=== PATIENT | male | born 1945 | race Caucasian/White ===

== ENCOUNTER → 2016-12-22 | Outpatient (CLI) | payer MEDICARE | END | disposition home or self-care (01) | LOC: LABWHC1 07:11 | PROVIDERS: ATTEND Internal Medicine Cardiovascular Disease | DX: I25.10 Atherosclerotic heart disease of native coronary artery without angina pectoris (principal) | CPT/HCPCS: 36415; 83704 ==

== ENCOUNTER 2019-12-04 16:26 | Emergency (ER) | payer MEDICARE ==
[2019-12-04 16:30] VITALS: RESP 18
--- NOTE | 2019-12-04 17:11 | XR ---
EXAMINATION TYPE: XR foot complete LT DATE OF EXAM: 12/04/2019 COMPARISON: NONE HISTORY: Big toe swelling TECHNIQUE: 3 views FINDINGS: There is a plantar calcaneal spur. Metatarsals are intact. There is some spurring at the ta rsometatarsal joints. The big toe appears intact. There are no erosions. IMPRESSION: Arthritic changes. No fracture seen.
[2019-12-04] MEDS ORDERED: CEPHALEXIN 500MG STARTER PACK 4 CAP BTL PO STA (17:45)
[2019-12-04] MEDS ORDERED: SULFAMETH-TMP DS STARTER PACK 2 TAB BTL PO STA (17:45)
--- NOTE | 2019-12-04 18:01 | ED ---
Lower Extremity Injury HPI - General Chief Complaint: Extremity Injury, Lower Stated Complaint: Toe swelling Source: patient Mode of arrival: ambulatory Limitations: no limitations - History of Present Illness Initial Comments: 74-year-old male presenting for left great toe pain patient states that he stubbed his toe proximally 5 days ago. He states he also attempted to cut his toenails. Patient states he now has redness adjacent to the toenail bed. Patient states it is tender to ambulation but he has been working and not having a difficult to ambulate. Patient is unsure if he has a fracture or infection secondary to cutting his toenails. Patient states he is prediabetic he states he has implementing lifestyle changes denies any diabetic medication denies being insulin-dependent. Patient denies any history of MRSA. Patient denies any fever or flulike symptoms. Patient has a swelling of the foot ankle or calf. Remaining review of systems negative upon arrival patient appears well no signs of acute distress - Related Data Home Medications Medication Instructions Recorded Confirmed Aspirin 81 mg PO DAILY 12/01/17 12/01/17 Atorvastatin [Lipitor] 80 mg PO DAILY 12/01/17 12/01/17 Enalapril [Vasotec] 10 mg PO DAILY 12/01/17 12/01/17 Metoprolol Succinate (ER) [Toprol 25 mg PO DAILY 12/01/17 12/01/17 XL] metFORMIN HCL [Glucophage Xr] 500 mg PO DAILY 12/01/17 12/01/17 Previous Rx's Medication Instructions Recorded Cephalexin [Keflex] 500 mg PO Q6HR 7 Days #28 cap 12/04/19 Allergies Allergy/AdvReac Type Severity Reaction Status Date / Time No Known Allergies Allergy Verified 12/04/19 16:30 Review of Systems ROS Statement: Those systems with pertinent positive or pertinent negative responses have been documented in the HPI. ROS Other: All systems not noted in ROS Statement are negative. Past Medical History Past Medical History: Hyperlipidemia, Hypertension Additional Past Medical History / Comment(s): AORTIC ANEURYSM, History of Any Multi-Drug Resistant Organisms: None Reported Past Surgical History: Heart Catheterization With Stent, Orthopedic Surgery Additional Past Surgical History / Comment(s): AORTIC ANEURYSM, RIPPED L ARM MUSCLE, R KNEE SURGERY, HEART STENT 2000 Past Anesthesia/Blood Transfusion Reactions: No Reported Reaction Date of Last Stent Placement:: 2000 Past Psychological History: No Psychological Hx Reported Smoking Status: Current some day smoker Past Alcohol Use History: None Reported Past Drug Use History: None Reported - Past Family History Mother Family Medical History: Cancer, Diabetes Mellitus Additional Family Medical History / Comment(s): HYSTERECTOMY Father Family Medical History: Diabetes Mellitus General Exam - General Exam Comments Initial Comments: General: The patient is awake and alert, in no distress, and does not appear acutely ill. Eye: +3 mm pupils are equal, round and reactive to light, extra-ocular movemen ts are intact. No nystagmus. There is normal conjunctiva bilaterally. No signs of icterus. Ears, nose, mouth and throat: There are moist mucous membranes and no oral les ions. Cardiovascular: There is a regular rate and rhythm. No murmur, rub or gallop is appreciated. Respiratory: Lungs are clear to auscultation, respirations are non-labored, breath sounds are equal. No wheezes, stridor, rales, or rhonchi. Musculoskeletal: Normal ROM, no tenderness. Strength 5/5. Sensation intact. Pulses equal bilaterally 2+. Neurological: A&O x 3. CN II-XII intact grossly, There are no obvious motor or sensory deficits. Coordination appears grossly intact. Speech is normal. Skin: Skin is warm and dry and no rashes or lesions are noted. Area of redness spreading from nailbed, with a fluctulant area adjacent to the left great toe medial aspect. No redness of foot or swelling. No gross deformity. Psychiatric: Cooperative, appropriate mood & affect, normal judgment. Limitations: no limitations Course Vital Signs 12/04/19 12/04/19 16:28 18:18 Temperature 98.1 F 98.6 F Pulse Rate 90 89 Respiratory 18 18 Rate Blood Pressure 170/74 176/80 O2 Sat by Pulse 96 95 Oximetry Medical Decision Making - Medical Decision Making 74-year-old male presenting for left great toe pain evidence of paronychia on examination. Attempted drainage no purulent drainage, only blood. No fevers. No constitutional symptoms. (-) Plain films for acute process. Patient be treated with antibiotics and given follow-up with podiatry as well as primary care provider. Discussed at length return parameters importance of follow-up. Discussed case attending provider who is agreeable care plan in discharge at this time Disposition Clinical Impression: Great toe pain, Paronychia of great toe, left Disposition: HOME SELF-CARE Condition: Good Instructions (If sedation given, give patient instructions): Paronychia (ED) Additional Instructions: Please use medication as discussed. Please follow-up with family doctor in the next 2 days. Please return to emergency room if the symptoms increase or worsen or for any other concerns. Prescriptions: Cephalexin [Keflex] 500 mg PO Q6HR 7 Days #28 cap Is patient prescribed a controlled substance at d/c from ED?: No Referrals: Zane Means MD [Primary Care Provider] - 1-2 days Niranjan Laureano DPM [STAFF PHYSICIAN] - 1-2 days Time of Disposition: 18:00
[2019-12-04 18:20] VITALS: BP 176/80; PULSE 89; TEMP 98.6
--- NOTE | 2019-12-06 07:39 | CDI ---
Documentation Clarification OP Dear Minerva Rodrigues, PAC Please provide complete incision & drainage note of paronychia of toe. Thank you, Bindu Matos Registered Respiratory Technician If you have any questions, please contact [employer] at [phone] [facility]
== END 2019-12-04 18:20 | disposition home or self-care (01) ==
LOC: EC 16:26
DX: L03.032 Cellulitis of left toe (principal); E78.5 Hyperlipidemia, unspecified; I10 Essential (primary) hypertension; F17.200 Nicotine dependence, unspecified, uncomplicated; Z95.5 Presence of coronary angioplasty implant and graft; Z79.82 Long term (current) use of aspirin; Z79.84 Long term (current) use of oral hypoglycemic drugs; Z79.899 Other long term (current) drug therapy
CPT/HCPCS: 10060; 99283

== ENCOUNTER 2020-04-27 13:11 | Inpatient (IN) | payer MEDICARE ==
[2020-04-27] MEDS ORDERED: SODIUM CHLORIDE 0.9% 500 ML 500 ML IV STA ×2 (13:24→15:51)
--- NOTE | 2020-04-27 13:29 | ED ---
Weakness HPI - General Chief complaint: Weakness Stated complaint: Weakness, Decrease mobility Time Seen by Provider: 04/27/20 13:15 Source: patient, EMS Mode of arrival: EMS Limitations: physical limitation - History of Present Illness Initial comments: Patient is a 74-year-old male, with history of hypertension, presenting to the emergency department via EMS with complaints of increasing weakness over the past few days. Patient states he rolled out of bed this morning onto the floor and was unable to get himself up. Patient states he laid there for partially 4- 5 hours before they called EMS. He is not normally use anything for walking assistance. He states he has been trying to eat and drink as normal, it has been decreased. EMS states that the house is very full of stuff, hoarding issue. EMS states there is no way to even get a wheelchair through their house. Patient denies any pain anywhere except for some chronic back pain. He denies any recent fever, chills, nausea, vomiting, diarrhea. He denies dysuria, abdominal pain. He denies chest pain or shortness of breath. He has no further complaints at this time. Upon arrival to the ER, patient was hypertensive at 173/89, rest of vitals normal. Patient states he is supposed to be taking hypertension medications but has not in 1-2 years. - Related Data Home Medications Medication Instructions Recorded Confirmed Aspirin 81 mg PO DAILY 12/01/17 04/27/20 Allergies Allergy/AdvReac Type Severity Reaction Status Date / Time No Known Allergies Allergy Verified 04/27/20 13:23 Review of Systems ROS Statement: Those systems with pertinent positive or pertinent negative responses have been documented in the HPI. ROS Other: All systems not noted in ROS Statement are negative. Past Medical History Past Medical History: Hyperlipidemia, Hypertension Additional Past Medical History / Comment(s): AORTIC ANEURYSM, History of Any Multi-Drug Resistant Organisms: None Reported Past Surgical History: Heart Catheterization With Stent, Orthopedic Surgery Additional Past Surgical History / Comment(s): AORTIC ANEURYSM, RIPPED L ARM MUSCLE, R KNEE SURGERY, HEART STENT 2000 Past Anesthesia/Blood Transfusion Reactions: No Reported Reaction Date of Last Stent Placement:: 2000 Past Psychological History: No Psychological Hx Reported Smoking Status: Current some day smoker Past Alcohol Use History: None Reported Past Drug Use History: None Reported - Past Family History Mother Family Medical History: Cancer, Diabetes Mellitus Additional Family Medical History / Comment(s): HYSTERECTOMY Father Family Medical History: Diabetes Mellitus General Exam - General Exam Comments Initial Comments: GENERAL: Patient looks disheveled, slightly fatigued and in no acute distress. HEAD: Atraumatic, normocephalic. EYES: Pupils equal round and reactive to light, extraocular movements intact, sclera anicteric, conjunctiva are normal. ENT: TMs normal, nares patent, oropharynx clear without exudates. Dry mucous membranes. NECK: Normal range of motion, supple without lymphadenopathy or JVD. LUNGS: Breath sounds clear to auscultation bilaterally and equal. No wheezes rales or rhonchi. HEART: Regular rate and rhythm without murmurs, rubs or gallops. ABDOMEN: Soft, nontender, normoactive bowel sounds. No guarding, no rebound. No masses appreciated. : Deferred EXTREMITIES: Normal range of motion, no pitting or edema. No clubbing or cyanosis. Strength is 5 out of 5 upper and lower extremities bilaterally. NEUROLOGICAL: Cranial nerves II through XII grossly intact. Normal speech, normal gait. PSYCH: Normal mood, normal affect. SKIN: Warm, Dry, normal turgor, no rashes or lesions noted. Limitations: physical limitation Course Vital Signs 04/27/20 04/27/20 04/27/20 13:18 15:03 16:40 Temperature 97.8 F Pulse Rate 91 84 78 Respiratory 18 16 16 Rate Blood Pressure 173/89 183/85 180/96 O2 Sat by Pulse 96 97 97 Oximetry EKG Findings - EKG Comments: EKG Findings:: Normal sinus rhythm, left axis deviation, RBBB, nonspecific T- wave abnormalities. Ventricular rate 82, TX interval 150, QT 412. Medical Decision Making - Medical Decision Making Patient is a 74-year-old male here for weakness. Patient was slightly hypertensive upon arrival, does not take the pressure medication the last 1-2 years. No complaints of pain other than a chronic back pain. EKG shows a rightBBB, no signs of acute ischemia. Chest x-ray shows no acute abnormalities. Lab work reveals elevated CK at 2008 112, troponin is elevated at 0.220, CK-MB is elevated at 8.1. BNP is 1240. Lactic acid is normal, glucose is 163. Urine shows blood, 4+ glucose, 2+ ketones. No signs of infection. Patient was given fluids, labetalol for his blood pressure. He continues to report no chest pain. I discussed case with Dr. Camp. The patient will be admitted for rhabdo, weakness, elevated troponin. Patient is agreement with this plan of care. Patient was accepted by Dr. Trevizo. - Lab Data Result diagrams: 04/27/20 13:35 04/27/20 13:35 Lab Results 04/27/20 04/27/20 04/27/20 Range/Units 13:35 13:35 13:35 WBC 9.7 (3.8-10.6) k/uL RBC 5.14 (4.30-5.90) m/uL Hgb 14.8 (13.0-17.5) gm/dL Hct 44.3 (39.0-53.0) % MCV 86.3 (80.0-100.0) fL MCH 28.9 (25.0-35.0) pg MCHC 33.5 (31.0-37.0) g/dL RDW 12.7 (11.5-15.5) % Plt Count 138 L (150-450) k/uL Neutrophils % 81 % Lymphocytes % 10 % Monocytes % 7 % Eosinophils % 1 % Basophils % 0 % Neutrophils # 7.8 H (1.3-7.7) k/uL Lymphocytes # 1.0 (1.0-4.8) k/uL Monocytes # 0.7 (0-1.0) k/uL Eosinophils # 0.1 (0-0.7) k/uL Basophils # 0.0 (0-0.2) k/uL PT 11.1 (9.0-12.0) sec INR 1.1 (<1.2) APTT 22.0 (22.0-30.0) sec Sodium 135 L (137-145) mmol/L Potassium 4.7 (3.5-5.1) mmol/L Chloride 104 (98-107) mmol/L Carbon Dioxide 25 (22-30) mmol/L Anion Gap 6 mmol/L BUN 15 (9-20) mg/dL Creatinine 0.55 L (0.66-1.25) mg/dL Est GFR (CKD-EPI)AfAm >90 (>60 ml/min/1.73 sqM) Est GFR (CKD-EPI)NonAf >90 (>60 ml/min/1.73 sqM) Glucose 163 H (74-99) mg/dL Plasma Lactic Acid Francis (0.7-2.0) mmol/L Calcium 8.9 (8.4-10.2) mg/dL Total Bilirubin 1.1 (0.2-1.3) mg/dL AST 84 H (17-59) U/L ALT 21 (4-49) U/L Alkaline Phosphatase 51 (38-126) U/L Creatine Kinase 2812 H* (55-170) U/L CK-MB (CK-2) (0.0-2.4) ng/mL Troponin I (0.000-0.034) ng/mL NT-Pro-B Natriuret Pep pg/mL Total Protein 6.8 (6.3-8.2) g/dL Albumin 3.9 (3.5-5.0) g/dL Urine Color Urine Appearance (Clear) Urine pH (5.0-8.0) Ur Specific Parshall (1.001-1.035) Urine Protein (Negative) Urine Glucose (UA) (Negative) Urine Ketones (Negative) Urine Blood (Negative) Urine Nitrite (Negative) Urine Bilirubin (Negative) Urine Urobilinogen (<2.0) mg/dL Ur Leukocyte Esterase (Negative) Urine RBC (0-5) /hpf Urine WBC (0-5) /hpf Ur Squamous Epith Cells (0-4) /hpf Urine Mucus (None) /hpf 04/27/20 04/27/20 04/27/20 Range/Units 13:35 13:35 13:35 WBC (3.8-10.6) k/uL RBC (4.30-5.90) m/uL Hgb (13.0-17.5) gm/dL Hct (39.0-53.0) % MCV (80.0-100.0) fL MCH (25.0-35.0) pg MCHC (31.0-37.0) g/dL RDW (11.5-15.5) % Plt Count (150-450) k/uL Neutrophils % % Lymphocytes % % Monocytes % % Eosinophils % % Basophils % % Neutrophils # (1.3-7.7) k/uL Lymphocytes # (1.0-4.8) k/uL Monocytes # (0-1.0) k/uL Eosinophils # (0-0.7) k/uL Basophils # (0-0.2) k/uL PT (9.0-12.0) sec INR (<1.2) APTT (22.0-30.0) sec Sodium (137-145) mmol/L Potassium (3.5-5.1) mmol/L Chloride (98-107) mmol/L Carbon Dioxide (22-30) mmol/L Anion Gap mmol/L BUN (9-20) mg/dL Creatinine (0.66-1.25) mg/dL Est GFR (CKD-EPI)AfAm (>60 ml/min/1.73 sqM) Est GFR (CKD-EPI)NonAf (>60 ml/min/1.73 sqM) Glucose (74-99) mg/dL Plasma Lactic Acid Francis 1.4 (0.7-2.0) mmol/L Calcium (8.4-10.2) mg/dL Total Bilirubin (0.2-1.3) mg/dL AST (17-59) U/L ALT (4-49) U/L Alkaline Phosphatase (38-126) U/L Creatine Kinase (55-170) U/L CK-MB (CK-2) (0.0-2.4) ng/mL Troponin I 0.220 H* (0.000-0.034) ng/mL NT-Pro-B Natriuret Pep 1240 pg/mL Total Protein (6.3-8.2) g/dL Albumin (3.5-5.0) g/dL Urine Color Urine Appearance (Clear) Urine pH (5.0-8.0) Ur Specific Parshall (1.001-1.035) Urine Protein (Negative) Urine Glucose (UA) (Negative) Urine Ketones (Negative) Urine Blood (Negative) Urine Nitrite (Negative) Urine Bilirubin (Negative) Urine Urobilinogen (<2.0) mg/dL Ur Leukocyte Esterase (Negative) Urine RBC (0-5) /hpf Urine WBC (0-5) /hpf Ur Squamous Epith Cells (0-4) /hpf Urine Mucus (None) /hpf 04/27/20 04/27/20 Range/Units 13:35 15:27 WBC (3.8-10.6) k/uL RBC (4.30-5.90) m/uL Hgb (13.0-17.5) gm/dL Hct (39.0-53.0) % MCV (80.0-100.0) fL MCH (25.0-35.0) pg MCHC (31.0-37.0) g/dL RDW (11.5-15.5) % Plt Count (150-450) k/uL Neutrophils % % Lymphocytes % % Monocytes % % Eosinophils % % Basophils % % Neutrophils # (1.3-7.7) k/uL Lymphocytes # (1.0-4.8) k/uL Monocytes # (0-1.0) k/uL Eosinophils # (0-0.7) k/uL Basophils # (0-0.2) k/uL PT (9.0-12.0) sec INR (<1.2) APTT (22.0-30.0) sec Sodium (137-145) mmol/L Potassium (3.5-5.1) mmol/L Chloride (98-107) mmol/L Carbon Dioxide (22-30) mmol/L Anion Gap mmol/L BUN (9-20) mg/dL Creatinine (0.66-1.25) mg/dL Est GFR (CKD-EPI)AfAm (>60 ml/min/1.73 sqM) Est GFR (CKD-EPI)NonAf (>60 ml/min/1.73 sqM) Glucose (74-99) mg/dL Plasma Lactic Acid Francis (0.7-2.0) mmol/L Calcium (8.4-10.2) mg/dL Total Bilirubin (0.2-1.3) mg/dL AST (17-59) U/L ALT (4-49) U/L Alkaline Phosphatase (38-126) U/L Creatine Kinase (55-170) U/L CK-MB (CK-2) 8.1 H (0.0-2.4) ng/mL Troponin I (0.000-0.034) ng/mL NT-Pro-B Natriuret Pep pg/mL Total Protein (6.3-8.2) g/dL Albumin (3.5-5.0) g/dL Urine Color Yellow Urine Appearance Clear (Clear) Urine pH 6.5 (5.0-8.0) Ur Specific Parshall 1.020 (1.001-1.035) Urine Protein 2+ H (Negative) Urine Glucose (UA) 4+ H (Negative) Urine Ketones 2+ H (Negative) Urine Blood Large H (Negative) Urine Nitrite Negative (Negative) Urine Bilirubin Negative (Negative) Urine Urobilinogen <2.0 (<2.0) mg/dL Ur Leukocyte Esterase Negative (Negative) Urine RBC 1 (0-5) /hpf Urine WBC 1 (0-5) /hpf Ur Squamous Epith Cells <1 (0-4) /hpf Urine Mucus Few H (None) /hpf Disposition Clinical Impression: Rhabdomyolysis, Elevated troponin, Weakness Disposition: ADMITTED IP TO THIS [facility] Condition: Stable Decision Date: 04/27/20 Decision Time: 16:48
[2020-04-27 14:00] LABS: ALT 21 U/L (4-49); AST 84 U/L (17-59); African American GFR (CKD) >90 (>60 ml/min/1.73 sqM); Albumin 3.9 g/dL (3.5-5.0); Alkaline Phosphatase 51 U/L (38-126); Anion Gap 6 mmol/L; Blood Urea Nitrogen 15 mg/dL (9-20); Calcium 8.9 mg/dL (8.4-10.2); Carbon Dioxide 25 mmol/L (22-30); Chloride 104 mmol/L (98-107); Glucose 163 mg/dL (74-99); Non-African American GFR(CKD) >90 (>60 ml/min/1.73 sqM); Potassium 4.7 mmol/L (3.5-5.1); Sodium 135 mmol/L (137-145); Total Bilirubin 1.1 mg/dL (0.2-1.3); Total Protein 6.8 g/dL (6.3-8.2)
[2020-04-27 14:02] LABS: INR 1.1 (<1.2); Prothrombin Time 11.1 sec (9.0-12.0)
[2020-04-27 14:15] LABS: Basophils % (A) 0 %; Eosinophils # (A) 0.1 k/uL (0-0.7); Eosinophils % (A) 1 %; HCT 44.3 % (39.0-53.0); HGB 14.8 gm/dL (13.0-17.5); Lymphocytes % (A) 10 %; MCH 28.9 pg (25.0-35.0); MCHC 33.5 g/dL (31.0-37.0); MCV 86.3 fL (80.0-100.0); Monocytes # (A) 0.7 k/uL (0-1.0); Monocytes % (A) 7 %; Neutrophils # (A) 7.8 k/uL (1.3-7.7); Neutrophils % (A) 81 %; Platelet Count 138 k/uL (150-450); RBC 5.14 m/uL (4.30-5.90); RDW 12.7 % (11.5-15.5); WBC 9.7 k/uL (3.8-10.6)
[2020-04-27 14:24] LABS: Creatine Kinase 2812 U/L (55-170)
--- NOTE | 2020-04-27 14:25 | XR ---
EXAMINATION TYPE: XR chest 2V DATE OF EXAM: 04/27/2020 COMPARISON: None INDICATION: Weakness TECHNIQUE: Frontal and lateral views of the chest are obtained. FINDINGS: The heart size is normal. The pulmonary vasculature is normal. The lungs are clear. IMPRESSION: 1. No acute pulmonary process.
[2020-04-27 15:49] LABS: Appearance,Urine Clear (Clear); Bilirubin,Urine Negative (Negative); Blood,Urine Large (Negative); Color,Urine Yellow; Glucose,Urine (UA) 4+ (Negative); Leukocyte Esterase,Urine Negative (Negative); Mucus,Urine Few /hpf; Nitrite,Urine Negative (Negative); PH, Urine 6.5 (5.0-8.0); Protein,Urine 2+ (Negative); RBC,Urine 1 /hpf (0-5); Squamous Epithelial Cell,Urine <1 /hpf (0-4); Urobilinogen,Urine <2.0 mg/dL (<2.0); WBC,Urine 1 /hpf (0-5)
[2020-04-27] MEDS ORDERED: LABETALOL 5 MG/ML VIAL MDV IVP STA (15:50)
[2020-04-27 16:03] LABS: Ketones,Urine 2+ (Negative)
[2020-04-27] MEDS ORDERED: ONDANSETRON 4 MG/2 ML VIAL IVP PRN (16:41)
[2020-04-27] MEDS ORDERED: NALOXONE 0.4 MG/ML 1 ML VIAL IV PRN (16:41)
[2020-04-27] MEDS ORDERED: hydrALAZINE HCL 20 MG/ML 1 ML VIAL IVP STA (16:43)
[2020-04-27] MEDS ORDERED: hydrALAZINE HCL 25 MG TAB PO PRN (16:44)
[2020-04-27] MEDS ORDERED: amLODIPine 10 MG TAB PO STA (18:02)
--- NOTE | 2020-04-27 18:04 | P.HPIM ---
History of Present Illness H&P Date: 04/27/20 Patient is a 74-year-old male with a PMH of hypertension and lipidemia who presented to the ED after a fall at home. The history supplemented by the patient's at the bedside. She notes that over the past 3-4 weeks, she has noticed that he has been getting weaker and less coordinated. She reports that he now has been walking with a "shuffling" gait and has had episodes of confusion and disorientation. She reports that they went to bed as per usual and she was woken up to him moving around on the floor at around 5:30 AM, after she last saw him in bed at around midnight. She is unsure when he fell to the ground. The patient notes that he was trying to get comfortable and might have fallen off, though is unsure as to why he did not get back into bed. He otherwise denied head trauma or having any pain after the fall. Reports mild chronic lower back pain which she has been suffering with for several years. He otherwise denied chest discomfort, shortness of breath, palpitations, nausea, or dizziness. Also denied unilateral weakness, numbness, or tingling. Denied headache, visual disturbances, or slurred speech. The patient underwent an extensive evaluation in the emergency room with a chest x-ray that was unremarkable. EKG revealed a normal sinus rhythm at 82 bpm with left axis deviation and a right bundle branch block. CT brain had revealed chronic small vessel ischemic changes with some disc herniation contributing to mild to moderate narrowing of the spinal canal. Laboratory evaluation revealed a CPK level of 2812, troponin 0.220, CK-MB 8.1, BNP 1240, WBC count of 9.7, hemoglobin 14.8, platelets 138, sodium 135, potassium 4.7, BUN 15, and creatinine 0.55. Review of Systems Pertinent positives and negatives as discussed in HPI, a complete review of systems was performed and all other systems are negative. Past Medical History Past Medical History: Hyperlipidemia, Hypertension Additional Past Medical History / Comment(s): AORTIC ANEURYSM, History of Any Multi-Drug Resistant Organisms: None Reported Past Surgical History: Heart Catheterization With Stent, Orthopedic Surgery Additional Past Surgical History / Comment(s): AORTIC ANEURYSM, RIPPED L ARM MUSCLE, R KNEE SURGERY, HEART STENT 2000 Past Anesthesia/Blood Transfusion Reactions: No Reported Reaction Date of Last Stent Placement:: 2000 Past Psychological History: No Psychological Hx Reported Smoking Status: Current some day smoker Past Alcohol Use History: None Reported Past Drug Use History: None Reported - Past Family History Mother Family Medical History: Cancer, Diabetes Mellitus Additional Family Medical History / Comment(s): HYSTERECTOMY Father Family Medical History: Diabetes Mellitus Medications and Allergies Home Medications Medication Instructions Recorded Confirmed Type Aspirin 81 mg PO DAILY 12/01/17 04/27/20 History Allergies Allergy/AdvReac Type Severity Reaction Status Date / Time No Known Allergies Allergy Verified 04/27/20 13:23 Physical Exam Vitals: Vital Signs Temp Pulse Resp BP Pulse Ox 04/27/20 16:40 78 16 180/96 97 04/27/20 15:03 84 16 183/85 97 04/27/20 13:18 97.8 F 91 18 173/89 96 Intake and Output 04/27/20 04/27/20 04/27/20 06:59 14:59 22:59 Other: Weight 81.647 kg General: non toxic, no distress, appears at stated age, normal weight Derm: no unusual rashes/lesions no unusual ecchymoses, warm, dry Head: atraumatic, normocephalic, symmetric Eyes: EOMI, no lid lag, anicteric sclera, pupils equal round reactive to light ENT: Nose and ears atraumatic, thrush noted, no pharyngeal erythema Neck: No thyromegaly, no cervical lymphadenopathy, trachea midline, supple Mouth: no lip lesion, mucus membranes moist Cardiovascular: S1S2 reg, no murmur, positive posterior tibial pulse bilateral, no edema, capillary refill less than 2 seconds Lungs: CTA bilateral, no rhonchi, no rales , no accessory muscle use Abdominal: soft, nontender to palpation, no guarding, no appreciable organomegaly, normal bowel sounds Ext: no gross muscle atrophy, muscle strength 5 out of 5 in all 4 extremities grossly, no contractures, right upper extremity rigidity noted Neuro: CN II-XI grossly intact, light touch intact all 4 extremities, finger to nose within normal limits Psych: Alert, oriented, appropriate affect Results CBC & Chem 7: 04/27/20 13:35 04/27/20 13:35 Labs: Abnormal Lab Results - Last 24 Hours (Table) 04/27/20 04/27/20 04/27/20 Range/Units 13:35 13:35 13:35 Plt Count 138 L (150-450) k/uL Neutrophils # 7.8 H (1.3-7.7) k/uL Sodium 135 L (137-145) mmol/L Creatinine 0.55 L (0.66-1.25) mg/dL Glucose 163 H (74-99) mg/dL AST 84 H (17-59) U/L Creatine Kinase 2812 H* (55-170) U/L CK-MB (CK-2) (0.0-2.4) ng/mL Troponin I 0.220 H* (0.000-0.034) ng/mL Urine Protein (Negative) Urine Glucose (UA) (Negative) Urine Ketones (Negative) Urine Blood (Negative) Urine Mucus (None) /hpf 04/27/20 04/27/20 Range/Units 13:35 15:27 Plt Count (150-450) k/uL Neutrophils # (1.3-7.7) k/uL Sodium (137-145) mmol/L Creatinine (0.66-1.25) mg/dL Glucose (74-99) mg/dL AST (17-59) U/L Creatine Kinase (55-170) U/L CK-MB (CK-2) 8.1 H (0.0-2.4) ng/mL Troponin I (0.000-0.034) ng/mL Urine Protein 2+ H (Negative) Urine Glucose (UA) 4+ H (Negative) Urine Ketones 2+ H (Negative) Urine Blood Large H (Negative) Urine Mucus Few H (None) /hpf Assessment and Plan Plan: Elevated CPK in setting of fall, rhabdomyolysis -Continue with IV fluids -Monitor CPK -Fall precautions Elevated troponin -Patient denying chest pain or shortness of breath -Trend troponin for now -Cardiac monitoring -If uptrending, consult cardiology HTN, poorly controlled -Start Norvasc RUE rigidity, shuffling gait, concerning for early Parkinson's -Neurology consult -Fall precautions as above -F/u CT Brain Thrombocytopenia -Monitor for now DVT prophylaxis -IPCDs The patient is admitted with an anticipated greater than 2 midnight stay for evaluation of rhabdomyolysis CODE STATUS: Full code Discussed with: Patient Anticipated discharge date: 2-[address]: Home A total of 40 minutes was spent on the care of this complex patient more than 50% of the time was spent in counseling and care coordination.
--- NOTE | 2020-04-27 18:04 | CT ---
EXAMINATION TYPE: CT brain maraline wo con DATE OF EXAM: 04/27/2020 COMPARISON: None. HISTORY: 74-year-old male pain after trauma, Fall out of bed today. CT DLP: 2535.3 mGycm Automated exposure control for dose reduction was used. Technique: Examination of the head was done in axial plane without intravenous contrast. Coronal and sagittal reconstructions performed. CT of the cervical spine was obtained in axial plane without intravenous injection of contrast mater ial. Coronal and sagittal reformatted images were obtained from the axial views for evaluation of f ractures, spinal alignment and canal. FINDINGS: Head: There is no evidence of acute intracranial hemorrhage, acute ischemic changes, mass, mass-effect, or extra-axial fluid collection. There is no effacement of cerebral sulci or basal subarachnoid cister ns. There is no hydrocephalus. There is no midline shift. Cuellar-white matter distinction is preserv ed. Atherosclerotic calcifications within the carotid siphons. Mild generalized atrophy. Mild patchy whit e matter hypodensities both cerebral hemispheres especially in the subinsular regions and bilateral b nirali ganglia. Punctate calcification right paramedian jose of unclear etiology, possible underlying cryptic AVM. Paranasal sinuses and mastoid air cells well pneumatized. Orbits and globes are intact. Cerumen left external auditory canal. Cervical spine: No craniocervical junction abnormality, predental space widening, or prevertebral soft tissue swellin g. Degenerative changes of the C1 dens articulation. Straightening of the upper cervical lordosis. Moderate disc/endplate degenerative changes especially at T3-T4. Scattered facet and uncovertebral joint arthropathy. No acute fracture is identified. The disc osteophyte complex at C2-C4 causes mild narrowing of the sp inal canal. Broad-based posterior disc protrusion at C4-C5 causes [id number] narrowing of the spinal canal. Assessment of the spinal canal from C5 and below limited due to artifact from the patient's shoulders . At C4-C5, moderate left neural foraminal stenosis. Mild neural foraminal narrowing elsewhere in the c ervical spine. Mild emphysematous change in the upper lungs. Sagittal and coronal reformatted images confirm above findings. COMBINED IMPRESSION: 1. Mild generalized atrophy and changes of chronic small vessel ischemic disease. No acute intracrani al abnormality seen. 2. No acute fracture or malalignment of the cervical spine. Moderate spondylotic change at C3-C4 and C4-C5. There is a posterior disc herniation at both of these levels contributing to mild to moderate narrowing of the spinal canal. Moderate left neural foraminal stenosis at C4-C5.
[2020-04-27] MEDS: ACETAMINOPHEN TAB 325 MG TAB PO PRN (18:19)
[2020-04-28] MEDS: SODIUM CHLORIDE 0.9% 1,000 ML IV SCH ×3 (04:02→13:35)
[2020-04-28 06:51] LABS: Basophils % (A) 1 %; Eosinophils # (A) 0.1 k/uL (0-0.7); Eosinophils % (A) 1 %; HCT 43.4 % (39.0-53.0); HGB 14.1 gm/dL (13.0-17.5); Lymphocytes # (A) 2.3 k/uL (1.0-4.8); Lymphocytes % (A) 31 %; MCH 28.6 pg (25.0-35.0); MCHC 32.6 g/dL (31.0-37.0); MCV 87.8 fL (80.0-100.0); Mean Platelet Volume 9.7; Monocytes # (A) 0.5 k/uL (0-1.0); Monocytes % (A) 7 %; Neutrophils # (A) 4.3 k/uL (1.3-7.7); Neutrophils % (A) 59 %; Platelet Count 129 k/uL (150-450); RBC 4.94 m/uL (4.30-5.90); RDW 12.9 % (11.5-15.5); WBC 7.3 k/uL (3.8-10.6)
[2020-04-28 07:01] LABS: ALT 25 U/L (4-49); AST 90 U/L (17-59); African American GFR (CKD) >90 (>60 ml/min/1.73 sqM); Albumin 3.4 g/dL (3.5-5.0); Alkaline Phosphatase 63 U/L (38-126); Anion Gap 5 mmol/L; Blood Urea Nitrogen 14 mg/dL (9-20); Calcium 9.1 mg/dL (8.4-10.2); Carbon Dioxide 23 mmol/L (22-30); Chloride 106 mmol/L (98-107); Glucose 135 mg/dL (74-99); Non-African American GFR(CKD) >90 (>60 ml/min/1.73 sqM); Sodium 134 mmol/L (137-145); Total Bilirubin 0.9 mg/dL (0.2-1.3); Total Protein 6.1 g/dL (6.3-8.2)
[2020-04-28 07:08] LABS: Creatine Kinase 2820 U/L (55-170)
[2020-04-28] MEDS: amLODIPine 10 MG TAB PO SCH (08:25)
--- NOTE | 2020-04-28 09:04 | P.CRDCN ---
History of Present Illness Consult date: 04/28/20 Reason for Consult (text): Elevated troponins Chief complaint: fall History of present illness: History of present illness: This is a 74-year-old male with past medical history of [place] with coronary artery stent placement by Dr. VC Dahl in 2000, hypertension, hyperlipidemia, aortic aneurysm repair. Patient's related history to the ER the patient has had increased weakness with shuffling gait and less coordination. Patient states that he rolled over in bed and fell out landing on his right hip. Patient apparently laid on the floor for unknown amount of time. Patient was brought into the emergency center for evaluation. CAT scan of the head and cervical spine showed no acute intracranial abnormality. There were chronic changes. No acute cervical fracture. Moderate spondylotic changes and disc herniation C3 4 and C4 5 with moderate left foraminal stenosis at C 45. Chest x-ray showed no acute abnormality. Lab work revealed a platelet count 129, creatinine was 0.5. Electrolytes were normal except for sodium of 134, blood sugar 135. Urine showed a large amount of blood. CK 2820, proBNP 1240. Troponin 0.220, 0.363, 0.385. EKG is sinus rhythm with right bundle branch block. Patient currently denies having any chest pain, no shortness of breath, no nausea or vomiting, no diaphoresis. Initially blood pressure was elevated running in the range 173/89 and patient was given hydralazine IV and labetalol IV, started on oral amlodipine. Review Of Systems: Constitutional: No fever, no chills. Reports weakness, no lethargy. EENT: No headache. No blurred vision or double vision, no loss of vision. No dizziness. No nasal drainage or congestion. Lungs: No shortness of breath, cough, no sputum production. No wheezing. Cardiovascular: No chest pain, no lower extremity edema. No palpitations. No paroxysmal nocturnal dyspnea. No orthopnea. No lightheadedness or dizziness. No syncopal episodes. Abdominal: No abdominal pain. No nausea, vomiting. No diarrhea. No constipation. No bloody or tarry stools.. No loss of appetite. Genitourinary: No dysuria, increased frequency, urgency. No urinary retention. Musculoskeletal: No myalgias. No muscle weakness, possible gait dysfunction, no frequent falls. No back pain. No neck pain. Integumentary: No wounds, no lesions. No rash or pruritus. No unusual bruising. Neurologic: No aphasia. No facial droop. No change in mentation. No head injury. No headache. No paralysis. No paresthesia. Psychiatric: No depression. No anxiety. Endocrine: elevated blood sugars. Physical examination: Gen: This is a 74-year-old male. He is sitting on the edge of the bed and appears in no acute distress. VS: Afebrile, heart rate 77, blood pressure 122/59, pulse ox 94% on room air. HEENT: Head is atraumatic, normocephalic. Pupils equal, round. Sclerae is anicteric. NECK: Supple. No JVD. No lymphadenopathy. No thyromegaly. LUNGS: Clear to auscultation. No wheezes or rhonchi. No intercostal retractions. HEART: Regular rate and rhythm. No murmur. ABDOMEN: Soft. Bowel sounds are present. No masses. No tenderness. EXTREMITIES: No pedal edema. No calf tenderness. NEUROLOGICAL: Patient is awake, alert and oriented x3. Cranial nerves 2 through 12 are grossly intact. Assessment: Rhabdomyolysis Possible early Parkinson's Thrombocytopenia Elevated troponin not consistent with acute coronary syndrome most likely s econdary to rhabdomyolysis Hypertension and hyperlipidemia--patient stopped taking medication History of myocardial infarction and coronary artery disease with stent placement in 2000 Plan: Continue amlodipine 10 mg daily Resume aspirin 81 mg daily Continue IV fluids Monitor CK levels Obtain 2-D echocardiogram and Doppler study to assess cardiac structure and function Further recommendations to follow based on clinical course Thank you kindly for this consultation Nurse practitioner note has been reviewed, I agree with documented findings and plan of care. Patient was seen and examined. Past Medical History Past Medical History: Hyperlipidemia, Hypertension, Myocardial Infarction (SC), Osteoarthritis (OA) Additional Past Medical History / Comment(s): AORTIC ANEURYSM, Last Myocardial Infarction Date:: 2000 History of Any Multi-Drug Resistant Organisms: None Reported Past Surgical History: Heart Catheterization With Stent, Orthopedic Surgery Additional Past Surgical History / Comment(s): AORTIC ANEURYSM, RIPPED L ARM MUSCLE, R KNEE SURGERY, HEART STENT 2000 Past Anesthesia/Blood Transfusion Reactions: No Reported Reaction Date of Last Stent Placement:: 2000 Past Psychological History: No Psychological Hx Reported Smoking Status: Current some day smoker Past Alcohol Use History: None Reported Past Drug Use History: None Reported - Past Family History Mother Family Medical History: Cancer, Diabetes Mellitus Additional Family Medical History / Comment(s): HYSTERECTOMY Father Family Medical History: Diabetes Mellitus Medications and Allergies Home Medications Medication Instructions Recorded Confirmed Type Aspirin 81 mg PO DAILY 12/01/17 04/27/20 History Allergies Allergy/AdvReac Type Severity Reaction Status Date / Time No Known Allergies Allergy Verified 04/27/20 13:23 Physical Exam Vitals: Vital Signs Temp Pulse Pulse Resp BP BP Pulse Ox 04/28/20 08:00 98.4 F 77 18 122/59 94 L 04/28/20 03:53 98.6 F 71 18 139/86 94 L 04/28/20 00:00 98.5 F 87 18 132/60 97 04/27/20 22:26 97.7 F 67 16 171/74 94 L 04/27/20 20:00 100.1 F H 85 18 171/74 96 04/27/20 18:24 98.2 F 77 16 160/73 98 04/27/20 16:40 78 16 180/96 97 04/27/20 15:03 84 16 183/85 97 04/27/20 13:18 97.8 F 91 18 173/89 96 Intake and Output 04/27/20 04/28/20 04/28/20 22:59 06:59 14:59 Output Total 150 150 Balance -150 -150 Output: Urine 150 150 Other: Voiding Method Toilet Toilet Urinal Urinal # Voids 1 1 Weight 81.647 kg 82 kg Results 04/28/20 06:17 04/28/20 06:17 Cardiac Enzymes 04/27/20 04/27/20 04/27/20 Range/Units 13:35 13:35 13:35 AST 84 H (17-59) U/L CK-MB (CK-2) 8.1 H (0.0-2.4) ng/mL Troponin I 0.220 H* (0.000-0.034) ng/mL 04/27/20 04/28/20 04/28/20 Range/Units 19:35 01:03 06:17 AST 90 H (17-59) U/L CK-MB (CK-2) (0.0-2.4) ng/mL Troponin I 0.363 H* 0.385 H* (0.000-0.034) ng/mL Coagulation 04/27/20 Range/Units 13:35 PT 11.1 (9.0-12.0) sec APTT 22.0 (22.0-30.0) sec CBC 04/27/20 04/28/20 Range/Units 13:35 06:17 WBC 9.7 7.3 (3.8-10.6) k/uL RBC 5.14 4.94 (4.30-5.90) m/uL Hgb 14.8 14.1 (13.0-17.5) gm/dL Hct 44.3 43.4 (39.0-53.0) % Plt Count 138 L 129 L (150-450) k/uL Comprehensive Metabolic Panel 04/27/20 04/28/20 Range/Units 13:35 06:17 Sodium 135 L 134 L (137-145) mmol/L Potassium 4.7 4.0 (3.5-5.1) mmol/L Chloride 104 106 (98-107) mmol/L Carbon Dioxide 25 23 (22-30) mmol/L BUN 15 14 (9-20) mg/dL Creatinine 0.55 L 0.50 L (0.66-1.25) mg/dL Glucose 163 H 135 H (74-99) mg/dL Calcium 8.9 9.1 (8.4-10.2) mg/dL AST 84 H 90 H (17-59) U/L ALT 21 25 (4-49) U/L Alkaline Phosphatase 51 63 (38-126) U/L Total Protein 6.8 6.1 L (6.3-8.2) g/dL Albumin 3.9 3.4 L (3.5-5.0) g/dL Current Medications Generic Name Dose Route Start Last Admin Trade Name Freq PRN Reason Stop Dose Admin Acetaminophen 650 mg 04/27/20 16:41 04/27/20 18:19 Tylenol Tab PO 650 mg Q6HR PRN Administration Mild Pain or Fever > 100.5 Amlodipine Besylate 10 mg 04/28/20 09:00 04/28/20 08:25 Norvasc PO 10 mg DAILY JOSH Administration Hydralazine HCl 25 mg 04/27/20 16:44 Apresoline PO QID PRN Blood Pressure - High Sodium Chloride 1,000 mls @ 75 mls/hr 04/27/20 16:45 04/28/20 07:44 Saline 0.9% IV Not Given .[id number] JOSH Naloxone HCl 0.2 mg 04/27/20 16:41 Narcan IV Q2M PRN Opioid Reversal Ondansetron HCl 4 mg 04/27/20 16:41 Zofran IVP Q8HR PRN Nausea And Vomiting Intake and Output 04/27/20 04/28/20 04/28/20 22:59 06:59 14:59 Output Total 150 150 Balance -150 -150 Output: Urine 150 150 Other: Voiding Method Toilet Toilet Urinal Urinal # Voids 1 1 Weight 81.647 kg 82 kg 04/28/20 06:17 04/28/20 06:17
--- NOTE | 2020-04-28 10:41 | P.PN ---
Subjective Progress Note Date: 04/28/20 74 yo male admitted yesterday after falling at home, developed rhabdomyolysis, troponin has been slowly increasing over the last 24 hrs. He denies ever having any chest pain, chest pressure, no palpitations or shortness of breath. He does have a history of CAD, [place] with 2 stent several years ago. His main complaint is left lower back/hip pain that he was admitted for, but pain is improving. He has been able to ambulate but is slightly unsteady, denies any dizziness or light headedness, no numbness or weakness, there is concern for new and undiagnosed Parkinson's disease which is being evaluated. Objective - Vital Signs Vital signs: Vital Signs Temp 98.4 F 04/28/20 08:00 Pulse 77 04/28/20 08:00 Resp 18 04/28/20 08:00 BP 122/59 04/28/20 08:00 Pulse Ox 94 L 04/28/20 08:00 Intake & Output 04/27/20 04/28/20 04/28/20 18:59 06:59 18:59 Intake Total 240 Output Total 300 Balance -300 240 Weight 81.647 kg 82 kg Intake: Oral 240 Output: Urine 300 Other: Voiding Method Toilet Urinal # Voids 1 - Exam General:in NAD, AxOx3 Head: atraumatic, normocephalic Eyes: EOMI, no lid lag, anicteric sclera, pupils equal round reactive to light Neck: No thyromegaly, no cervical lymphadenopathy, trachea midline Mouth: no lip lesion, mucus membranes moist Cardiovascular: S1S2 reg, no murmur, no edema, capillary refill less than 2 seconds Lungs: CTA bilateral, no rhonchi, no rales , no accessory muscle use Abdominal: soft, nontender to palpation, no guarding, no appreciable organomegaly, normal bowel sounds Ext:tenderness of soft tissue over left lower back, no bone tenderness, ROM at hip normal, muscle strength 5 out of 5 in all 4 extremities grossly Neuro: CN II-XI grossly intact, light touch intact all 4 extremities, finger to nose within normal limits Psych: Alert, oriented, appropriate affect - Labs CBC & Chem 7: 04/28/20 06:17 04/28/20 06:17 Labs: Abnormal Lab Results - Last 24 Hours (Table) 04/27/20 04/27/20 04/27/20 Range/Units 13:35 13:35 13:35 Plt Count 138 L (150-450) k/uL Neutrophils # 7.8 H (1.3-7.7) k/uL Sodium 135 L (137-145) mmol/L Creatinine 0.55 L (0.66-1.25) mg/dL Glucose 163 H (74-99) mg/dL AST 84 H (17-59) U/L Creatine Kinase 2812 H* (55-170) U/L CK-MB (CK-2) (0.0-2.4) ng/mL Troponin I 0.220 H* (0.000-0.034) ng/mL Total Protein (6.3-8.2) g/dL Albumin (3.5-5.0) g/dL Urine Protein (Negative) Urine Glucose (UA) (Negative) Urine Ketones (Negative) Urine Blood (Negative) Urine Mucus (None) /hpf 04/27/20 04/27/20 04/27/20 Range/Units 13:35 15:27 19:35 Plt Count (150-450) k/uL Neutrophils # (1.3-7.7) k/uL Sodium (137-145) mmol/L Creatinine (0.66-1.25) mg/dL Glucose (74-99) mg/dL AST (17-59) U/L Creatine Kinase (55-170) U/L CK-MB (CK-2) 8.1 H (0.0-2.4) ng/mL Troponin I 0.363 H* (0.000-0.034) ng/mL Total Protein (6.3-8.2) g/dL Albumin (3.5-5.0) g/dL Urine Protein 2+ H (Negative) Urine Glucose (UA) 4+ H (Negative) Urine Ketones 2+ H (Negative) Urine Blood Large H (Negative) Urine Mucus Few H (None) /[facility] 04/28/20 04/28/20 04/28/20 Range/Units 01:03 06:17 06:17 Plt Count 129 L (150-450) k/uL Neutrophils # (1.3-7.7) k/uL Sodium 134 L (137-145) mmol/L Creatinine 0.50 L (0.66-1.25) mg/dL Glucose 135 H (74-99) mg/dL AST 90 H (17-59) U/L Creatine Kinase 2820 H* (55-170) U/L CK-MB (CK-2) (0.0-2.4) ng/mL Troponin I 0.385 H* (0.000-0.034) ng/mL Total Protein 6.1 L (6.3-8.2) g/dL Albumin 3.4 L (3.5-5.0) g/dL Urine Protein (Negative) Urine Glucose (UA) (Negative) Urine Ketones (Negative) Urine Blood (Negative) Urine Mucus (None) /hpf Assessment and Plan Assessment: # Rhabdomyolysis -secondary to fall -CPK 2820 today, 2812 yesterday -pain slilghtly improved -continue IVF, monitor renal function -repeat CPK # Elevated troponin -Patient denying chest pain/pressure or shortness of breath -EKG shows NSR, RBBB, no ST elevation -troponin elevation may be due to elevated CPK levels #Elevated Liver Enzymes -secondary to skeletal muscle damage which contains small amount of AST and ALT -continue to monitor # HTN -controlled with Norvasc # CAD -continue Aspiring # DVT PPX anticipated DC home in 1-2 days
[2020-04-28] MEDS: ASPIRIN 81 MG PO SCH (11:50)
--- NOTE | 2020-04-28 15:01 | ECHOF ---
Referral Reason:LVF MEASUREMENTS -------- HEIGHT: 180.3 cm WEIGHT: 81.6 kg BP: IVSd: 1.5 cm (0.6 - 1.1) LVIDd: 4.0 cm (3.9 - 5.3) LVPWd: 1.7 cm (0.6 - 1.1) IVSs: 2.2 cm LVIDs: 1.4 cm LVPWs: 1.9 cm Ao Diam: 3.4 cm (2.0 - 3.7) AV Cusp: 2.2 cm (1.5 - 2.6) LA Diam: 2.5 cm (2.7 - 3.8) MV EXCURSION: 23.601 mm (> 18.000) MV EF SLOPE: 121 mm/s (70 - 150) EPSS: 2.6 cm MV E Avinash: 1.01 m/s MV DecT: 260 ms MV A Avinash: 0.68 m/s MV E/A Ratio: 1.50 RAP: 5.00 mmHg RVSP: 10.09 mmHg FINDINGS -------- Sinus rhythm. This was a technically good study. The left ventricular size is normal. There is moderate concentric left ventricular hypertrophy. O verall left ventricular systolic function is normal with, an EF between 55 - 60 %. The right ventricle is normal in size. The left atrial size is normal. The right atrial size is normal. The aortic valve is trileaflet and appears structurally normal. The mitral valve is normal. There is trace mitral regurgitation. The tricuspid valve appears structurally normal. Trace tricuspid regurgitation present. Right gee tricular systolic pressure is normal at < 35 mmHg. There is no pulmonic regurgitation present. The aortic root size is normal. Normal inferior vena cava with normal inspiratory collapse consistent with estimated right atrial pre ssure of 5 mmHg. There is no pericardial effusion. CONCLUSIONS -------- 1. Sinus rhythm. 2. This was a technically good study. 3. The left ventricular size is normal. 4. There is moderate concentric left ventricular hypertrophy. 5. Overall left ventricular systolic function is normal with, an EF between 55 - 60 %. 6. The right ventricle is normal in size. 7. The left atrial size is normal. 8. The right atrial size is normal. 9. The aortic valve is trileaflet and appears structurally normal. 10. The mitral valve is normal. 11. There is trace mitral regurgitation. 12. The tricuspid valve appears structurally normal. 13. Trace tricuspid regurgitation present. 14. Right ventricular systolic pressure is normal at < 35 mmHg. 15. There is no pulmonic regurgitation present. 16. The aortic root size is normal. 17. Normal inferior vena cava with normal inspiratory collapse consistent with estimated right atrial pressure of 5 mmHg. 18. There is no pericardial effusion. CEN[employer]IF[employer]AL SUPERVISOR: Iza Sesay RDCS
[2020-04-28] MEDS ORDERED: CALCIUM CARBONATE 500 MG CHEWABLE PO PRN (17:42)
[2020-04-29 06:16] LABS: Basophils % (A) 1 %; Eosinophils # (A) 0.2 k/uL (0-0.7); Eosinophils % (A) 3 %; HCT 44.1 % (39.0-53.0); HGB 14.6 gm/dL (13.0-17.5); Lymphocytes # (A) 1.6 k/uL (1.0-4.8); Lymphocytes % (A) 28 %; MCHC 33.1 g/dL (31.0-37.0); MCV 87.6 fL (80.0-100.0); Mean Platelet Volume 9.2; Monocytes # (A) 0.5 k/uL (0-1.0); Monocytes % (A) 9 %; Neutrophils # (A) 3.3 k/uL (1.3-7.7); Neutrophils % (A) 59 %; Platelet Count 127 k/uL (150-450); RBC 5.03 m/uL (4.30-5.90); RDW 12.8 % (11.5-15.5); WBC 5.6 k/uL (3.8-10.6)
[2020-04-29 06:30] LABS: ALT 30 U/L (4-49); AST 79 U/L (17-59); African American GFR (CKD) >90 (>60 ml/min/1.73 sqM); Albumin 3.3 g/dL (3.5-5.0); Alkaline Phosphatase 61 U/L (38-126); Anion Gap 4 mmol/L; Blood Urea Nitrogen 11 mg/dL (9-20); Calcium 8.8 mg/dL (8.4-10.2); Carbon Dioxide 26 mmol/L (22-30); Chloride 108 mmol/L (98-107); Glucose 158 mg/dL (74-99); Non-African American GFR(CKD) >90 (>60 ml/min/1.73 sqM); Potassium 4.1 mmol/L (3.5-5.1); Sodium 138 mmol/L (137-145); Total Bilirubin 0.7 mg/dL (0.2-1.3); Total Protein 5.9 g/dL (6.3-8.2)
[2020-04-29] MEDS: PANTOPRAZOLE 40 MG TABLET PO SCH (07:10)
[2020-04-29] MEDS: SODIUM CHLORIDE 0.9% 1,000 ML IV SCH ×2 (07:36→12:20)
[2020-04-29] MEDS: amLODIPine 10 MG TAB PO SCH (08:10)
[2020-04-29] MEDS: ASPIRIN 81 MG PO SCH (08:10)
[2020-04-29] MEDS: ACETAMINOPHEN TAB 325 MG TAB PO PRN (08:16)
--- NOTE | 2020-04-29 10:42 | P.PN ---
Subjective Progress Note Date: 04/29/20 History of present illness: This is a 74-year-old male with past medical history of [place] with coronary artery stent placement by Dr. VC Dahl in 2000, hypertension, hyperlipidemia, aortic aneurysm repair. Patient's related history to the ER the patient has had increased weakness with shuffling gait and less coordination. Patient states that he rolled over in bed and fell out landing on his right hip. Patient apparently laid on the floor for unknown amount of time. Patient was brought into the emergency center for evaluation. CAT scan of the head and cervical spine showed no acute intracranial abnormality. There were chronic changes. No acute cervical fracture. Moderate spondylotic changes and disc herniation C3 4 and C4 5 with moderate left foraminal stenosis at C 45. Chest x-ray showed no acute abnormality. Lab work revealed a platelet count 129, creatinine was 0.5. Electrolytes were normal except for sodium of 134, blood sugar 135. Urine showed a large amount of blood. CK 2820, proBNP 1240. Troponin 0.220, 0.363, 0.385. EKG is sinus rhythm with right bundle branch block. Patient currently denies having any chest pain, no shortness of breath, no nausea or vomiting, no diaphoresis. Initially blood pressure was elevated running in the range 173/89 and patient was given hydralazine IV and labetalol IV, started on oral amlodipine. 04/29: Patient denies any new complaints. He denies having any chest pain, no lightheadedness or dizziness. Repeat CK is at 1324. Other lab work reveals creatinine of 0.51, BUN 11, potassium is 4.1, platelet count 127. A cardiogram reveals EF of 55-60%, trace mitral regurgitation, trace tricuspid regurgitation. The patient is being evaluated for Parkinson's disease by neurology. Physical examination: Gen: This is a 74-year-old male. He is sitting on the edge of the bed and appears in no acute distress. VS: Afebrile, heart rate 60s, blood pressure 138/80, pulse ox 98% on room air. HEENT: Head is atraumatic, normocephalic. Pupils equal, round. Sclerae is anicteric. NECK: Supple. No JVD. No lymphadenopathy. No thyromegaly. LUNGS: Clear to auscultation. No wheezes or rhonchi. No intercostal retractions. HEART: Regular rate and rhythm. No murmur. ABDOMEN: Soft. Bowel sounds are present. No masses. No tenderness. EXTREMITIES: No pedal edema. No calf tenderness. NEUROLOGICAL: Patient is awake, alert and oriented x3. Cranial nerves 2 through 12 are grossly intact. Assessment: Rhabdomyolysis Possible early Parkinson's Thrombocytopenia Elevated troponin secondary to rhabdomyolysis, no acute coronary syndrome Hypertension and hyperlipidemia--patient stopped taking medication History of myocardial infarction and coronary artery disease with stent placement in 2000 Plan: Continue amlodipine 10 mg daily Continue aspirin 81 mg daily we will follow on an as-needed basis. Please recon sult for any concerns. Thank you kindly for this consultation Nurse practitioner note has been reviewed, I agree with documented findings and plan of care. Patient was seen and examined. Objective - Vital Signs Vital signs: Vital Signs Temp 97.6 F 04/29/20 08:00 Pulse 61 04/29/20 08:00 Resp 18 04/29/20 08:00 BP 138/80 04/29/20 08:00 Pulse Ox 98 04/29/20 08:00 Intake & Output 04/28/20 04/29/20 04/29/20 18:59 06:59 18:59 Intake Total 580 Output Total 200 600 Balance 380 -600 Weight 79.2 kg Intake: Oral 580 Output: Urine 200 600 Other: Voiding Method Toilet Urinal # Voids 1 - Labs CBC & Chem 7: 04/29/20 05:56 04/29/20 05:56 Labs: Abnormal Lab Results - Last 24 Hours (Table) 04/29/20 04/29/20 04/29/20 Range/Units 05:56 05:56 05:56 Plt Count 127 L (150-450) k/uL Chloride 108 H (98-107) mmol/L Creatinine 0.51 L (0.66-1.25) mg/dL Glucose 158 H (74-99) mg/dL AST 79 H (17-59) U/L CK-MB (CK-2) 5.3 H (0.0-2.4) ng/mL Total Protein 5.9 L (6.3-8.2) g/dL Albumin 3.3 L (3.5-5.0) g/dL
--- NOTE | 2020-04-29 16:36 | P.PN ---
Subjective Progress Note Date: 04/29/20 No significant events overnight, back pain has improved. Denies any shortness of breath, no fever or chills, no dizziness or tremors. Ambulating with assistance, reports feeling "weak in my legs", but improving. Patient has no other new complaints or symptoms. Objective - Vital Signs Vital signs: Vital Signs Temp 98 F 04/29/20 11:41 Pulse 63 04/29/20 11:41 Resp 18 04/29/20 11:41 BP 130/76 04/29/20 11:41 Pulse Ox 97 04/29/20 11:41 Intake & Output 04/28/20 04/29/20 04/29/20 18:59 06:59 18:59 Intake Total 580 Output Total 200 600 100 Balance 380 -600 -100 Weight 79.2 kg Intake: Oral 580 Output: Urine 200 600 100 Other: Voiding Method Toilet Urinal # Voids 1 1 - Exam General:in NAD, AxOx3 Head: atraumatic, normocephalic Eyes: EOMI, no lid lag, anicteric sclera, pupils equal round reactive to light Neck: No thyromegaly, no cervical lymphadenopathy, trachea midline Mouth: no lip lesion, mucus membranes moist Cardiovascular: S1S2 reg, no murmur, no edema, capillary refill less than 2 seconds Lungs: CTA bilateral, no rhonchi, no rales , no accessory muscle use Abdominal: soft, nontender to palpation, no guarding, no appreciable organomegaly, normal bowel sounds Ext:tenderness of soft tissue over left lower back improving , no bone tenderness, ROM at hip normal, muscle strength 5 out of 5 in all 4 extremities grossly Neuro: no tremor, CN II-XI grossly intact, light touch intact all 4 extremities, finger to nose within normal limits Psych: Alert, oriented, appropriate affect - Labs CBC & Chem 7: 04/29/20 05:56 04/29/20 05:56 Labs: Abnormal Lab Results - Last 24 Hours (Table) 04/29/20 04/29/20 04/29/20 Range/Units 05:56 05:56 05:56 Plt Count 127 L (150-450) k/uL Chloride 108 H (98-107) mmol/L Creatinine 0.51 L (0.66-1.25) mg/dL Glucose 158 H (74-99) mg/dL AST 79 H (17-59) U/L Creatine Kinase (55-170) U/L CK-MB (CK-2) 5.3 H (0.0-2.4) ng/mL Total Protein 5.9 L (6.3-8.2) g/dL Albumin 3.3 L (3.5-5.0) g/dL 04/29/20 Range/Units 05:56 Plt Count (150-450) k/uL Chloride (98-107) mmol/L Creatinine (0.66-1.25) mg/dL Glucose (74-99) mg/dL AST (17-59) U/L Creatine Kinase 1324 H* (55-170) U/L CK-MB (CK-2) (0.0-2.4) ng/mL Total Protein (6.3-8.2) g/dL Albumin (3.5-5.0) g/dL Assessment and Plan Assessment: # Rhabdomyolysis -improving -secondary to fall -CPK decreased from 2800 to 1320 -pain improving -continue IVF, monitor renal function # Elevated troponin -Patient denying chest pain/pressure or shortness of breath -EKG shows NSR, RBBB, no ST elevation -troponin elevation may be due to elevated CPK levels -no further workup per cardiology #Elevated Liver Enzymes -improving -secondary to skeletal muscle damage which contains small amount of AST and ALT -continue to monitor # HTN -controlled with Norvasc # CAD -continue Aspiring # DVT PPX # Disposition -f/u with dischrge [facility] home with homecare vs [facility]
[2020-04-30] MEDS: ACETAMINOPHEN TAB 325 MG TAB PO PRN ×2 (02:42→16:02)
[2020-04-30] MEDS ORDERED: KETOROLAC 30 MG/ML 1 ML VIAL IVP STA (05:17)
[2020-04-30 06:07] LABS: Basophils % (A) 0 %; Eosinophils # (A) 0.1 k/uL (0-0.7); Eosinophils % (A) 1 %; HCT 40.8 % (39.0-53.0); HGB 14.3 gm/dL (13.0-17.5); Lymphocytes % (A) 16 %; MCH 30.7 pg (25.0-35.0); MCV 87.7 fL (80.0-100.0); Mean Platelet Volume 10.2; Monocytes # (A) 0.4 k/uL (0-1.0); Monocytes % (A) 6 %; Neutrophils # (A) 4.9 k/uL (1.3-7.7); Neutrophils % (A) 76 %; Platelet Count 117 k/uL (150-450); RBC 4.65 m/uL (4.30-5.90); RDW 12.8 % (11.5-15.5); WBC 6.5 k/uL (3.8-10.6)
[2020-04-30 06:16] LABS: ALT 32 U/L (4-49); AST 55 U/L (17-59); African American GFR (CKD) >90 (>60 ml/min/1.73 sqM); Albumin 3.4 g/dL (3.5-5.0); Alkaline Phosphatase 70 U/L (38-126); Anion Gap 5 mmol/L; Blood Urea Nitrogen 15 mg/dL (9-20); Carbon Dioxide 25 mmol/L (22-30); Chloride 105 mmol/L (98-107); Glucose 210 mg/dL (74-99); Non-African American GFR(CKD) >90 (>60 ml/min/1.73 sqM); Potassium 4.1 mmol/L (3.5-5.1); Sodium 135 mmol/L (137-145); Total Bilirubin 0.6 mg/dL (0.2-1.3)
[2020-04-30] MEDS: PANTOPRAZOLE 40 MG TABLET PO SCH (06:56)
[2020-04-30] MEDS: amLODIPine 10 MG TAB PO SCH (08:25)
[2020-04-30] MEDS: ASPIRIN 81 MG PO SCH (08:26)
[2020-04-30] MEDS ORDERED: LOSARTAN 25 MG TAB PO SCH (09:00)
--- NOTE | 2020-04-30 10:05 | P.PN ---
Subjective Progress Note Date: 04/30/20 Principal diagnosis: Rhabdomyolysis with weakness Patient seen and examined at bedside. Patient had a fall last night when going to the bathroom and hit his left rib cage. Patient states it is tender to the touch. Patient denies chest pain shortness of breath nausea vomiting fevers or chills. Objective - Vital Signs Vital signs: Vital Signs Temp 98.2 F 04/30/20 08:00 Pulse 75 04/30/20 08:00 Resp 16 04/30/20 08:00 BP 157/68 04/30/20 08:00 Pulse Ox 95 04/30/20 08:00 Intake & Output 04/29/20 04/30/20 04/30/20 18:59 06:59 18:59 Output Total 100 Balance -100 Weight 75.5 kg Output: Urine 100 Other: Voiding Method Toilet Toilet Urinal Urinal # Voids 3 1 # Bowel Movements 0 - Exam General: [non toxic], [no distress], [appears at stated age] Derm: [warm], [dry] Head: [atraumatic], [normocephalic], [symmetric] Eyes: [EOMI], [no lid lag], [anicteric sclera] Mouth: [no lip lesion], [mucus membranes moist] Cardiovascular: [S1S2 reg], [no murmur], [positive posterior tibial pulse bilateral], Lungs: [CTA bilateral], [no rhonchi, no rales] , [no accessory muscle use] left rib cage tenderness Abdominal: [soft], [ nontender to palpation], [no guarding], [no appreciable organomegaly] Ext: [no gross muscle atrophy], [no edema], [no contractures] Neuro: [ CN II-XI grossly intact], [no focal neuro deficits] Psych: [Alert], [oriented], [appropriate affect] - Labs CBC & Chem 7: 04/30/20 05:11 04/30/20 05:11 Labs: Abnormal Lab Results - Last 24 Hours (Table) 04/29/20 04/30/20 04/30/20 Range/Units 05:56 05:11 05:11 Plt Count 117 L (150-450) k/uL Sodium 135 L (137-145) mmol/L Creatinine 0.53 L (0.66-1.25) mg/dL Glucose 210 H (74-99) mg/dL Creatine Kinase 1324 H* (55-170) U/L Total Protein 6.0 L (6.3-8.2) g/dL Albumin 3.4 L (3.5-5.0) g/dL 04/30/20 Range/Units 05:11 Plt Count (150-450) k/uL Sodium (137-145) mmol/L Creatinine (0.66-1.25) mg/dL Glucose (74-99) mg/dL Creatine Kinase 649 H (55-170) U/L Total Protein (6.3-8.2) g/dL Albumin (3.5-5.0) g/dL Assessment and Plan Assessment: 1. Rhabdomyolysis -improving -secondary to fall -CPK decreased from 1324 to 649 -pain improving -continue IVF, monitor renal function -Await PT/OT recommendations 2. Thrombocytopenia worsening consult hematology 2. Left rib pain s/p fall -check xray 3. Elevated troponin -Patient denying chest pain/pressure or shortness of breath -EKG shows NSR, RBBB, no ST elevation -troponin elevation may be due to elevated CPK levels -no further workup per cardiology 4. Elevated Liver Enzymes -improving -secondary to skeletal muscle damage which contains small amount of AST and ALT -continue to monitor 5. HTN uncontrolled -continue Norvasc -add metoprolol 6. CAD -continue Aspiring 7. DVT PPX 8. AM labs
[2020-04-30] MEDS: METOPROLOL SUCCINATE (ER) 25 MG TAB.ER.24H PO SCH (11:19)
[2020-04-30 13:14] LABS: Magnesium 1.7 mg/dL (1.6-2.3); Phosphorus 3.7 mg/dL (2.5-4.5)
[2020-04-30 13:25] LABS: Prothrombin Time 10.4 sec (9.0-12.0)
--- NOTE | 2020-04-30 13:48 | XR ---
EXAMINATION TYPE: XR ribs LT w pa chest xray DATE OF EXAM: 04/30/2020 COMPARISON: 04/27/2020 HISTORY: Pain post fall TECHNIQUE: Frontal view of the chest and 4 views of the left ribs are submitted FINDINGS: Patient is rotated with atherosclerotic change of the aorta, hypertrophic changes spine and degenerative changes. Coarsened interstitium is stable from prior exam. No pneumothorax. Subsegmenta l linear changes most typical atelectasis. There is a subtle deformity involving the lateral left eighth and ninth rib. IMPRESSION: 1. Findings suspicious for hairline fracture lateral margin left eighth and ninth ribs correlate with point tenderness for confirmation. 2. Thoracic aortic aneurysm not excluded correlate clinically.
[2020-04-30 13:54] LABS: Partial Thromboplastin Time 21.4 sec (22.0-30.0)
--- NOTE | 2020-04-30 17:03 | P.CONS ---
History of Present Illness - Reason for Consult Consult date: 04/30/20 Thrombocytopenia Requesting physician: Arie Tatum - Chief Complaint Mental Status CHanges - History of Present Illness Mr. Masters is a 74 year old male patient who presented to [facility] Emergency room after falling at home. He has a known history of Hypertension and Hyperlipidemia. On arrival he was disoriented and history was mostly received from his . Per the medical record the patient has been feeling less coordinated and weaker over the past few weeks. Presenting with a shuffling gait and intermittent disorientation and confusion. His had found him on the floor around 5am after last seeing him before they went to sleep at midnight. He cannot remember exactly what happened but feels he may have fell out of bed trying to get comfortable. CT brain had revealed chronic small vessel ischemic changes with some disc herniation contributing to mild to moderate narrowing of the spinal canal. Laboratory evaluation revealed a CPK level of 2812s now 600, troponin 0.220, CK- MB 8.1, BNP 1240, WBC count of 9.7, hemoglobin 14.8, platelets 138, sodium 135, potassium 4.7, BUN 15, and creatinine 0.55. He denies any pain, SOB, headaches, N/V. He had apparently fell last night attempting to find the bathroom and does complain of some tenderness near ribcage after fall. Chest xray post fall does show possible hairline fracture over the left lateral 9th and 9th rib. Review of Systems A 14 point review of systems assessed and completed and all negative except HPI - Patient is a poor historian. Past Medical History Past Medical History: Hyperlipidemia, Hypertension, Myocardial Infarction ([place]), Osteoarthritis (OA) Additional Past Medical History / Comment(s): AORTIC ANEURYSM, Last Myocardial Infarction Date:: 2000 History of Any Multi-Drug Resistant Organisms: None Reported Past Surgical History: Heart Catheterization With Stent, Orthopedic Surgery Additional Past Surgical History / Comment(s): AORTIC ANEURYSM, RIPPED L ARM MUSCLE, R KNEE SURGERY, HEART STENT 2000 Past Anesthesia/Blood Transfusion Reactions: No Reported Reaction Date of Last Stent Placement:: 2000 Past Psychological History: No Psychological Hx Reported Smoking Status: Current some day smoker Past Alcohol Use History: None Reported Past Drug Use History: None Reported - Past Family History Mother Family Medical History: Cancer, Diabetes Mellitus Additional Family Medical History / Comment(s): HYSTERECTOMY Father Family Medical History: Diabetes Mellitus Medications and Allergies Home Medications Medication Instructions Recorded Confirmed Type Aspirin 81 mg PO DAILY 12/01/17 04/27/20 History Allergies Allergy/AdvReac Type Severity Reaction Status Date / Time No Known Allergies Allergy Verified 04/27/20 13:23 Physical Exam Vitals: Vital Signs Temp Pulse Resp BP Pulse Ox 04/30/20 11:26 98 F 81 16 159/78 96 04/30/20 08:00 98.2 F 75 16 157/68 95 04/30/20 04:00 68 18 04/30/20 00:00 98.5 F 68 18 167/76 96 04/29/20 20:00 97.5 F L 66 18 137/62 98 04/29/20 16:00 97.6 F 66 18 148/66 94 L Intake and Output 04/30/20 04/30/20 04/30/20 06:59 14:59 22:59 Intake Total 200 Balance 200 Intake: Oral 200 Other: Voiding Method Toilet Toilet Urinal Urinal # Voids 1 1 Weight 75.5 kg - Constitutional General appearance: cooperative, no acute distress - EENT Eyes: EOMI, dentition normal ENT: NA/AT, normal oropharynx - Neck Neck: normal ROM - Respiratory Respiratory: bilateral: CTA (no increased effort) - Cardiovascular Rhythm: regular Heart sounds: normal: S1, S2 - Gastrointestinal General gastrointestinal: normal bowel sounds, soft - Integumentary Integumentary: normal - Neurologic decreased coordination and atrophy noted - Musculoskeletal Musculoskeletal: right sided weakness, left sided weakness - Psychiatric Psychiatric: A&O x's 3 Results CBC & Chem 7: 04/30/20 05:11 04/30/20 05:11 Labs: Abnormal Lab Results - Last 24 Hours (Table) 04/30/20 04/30/20 04/30/20 Range/Units 05:11 05:11 05:11 Plt Count 117 L (150-450) k/uL APTT (22.0-30.0) sec Sodium 135 L (137-145) mmol/L Creatinine 0.53 L (0.66-1.25) mg/dL Glucose 210 H (74-99) mg/dL Creatine Kinase 649 H (55-170) U/L Total Protein 6.0 L (6.3-8.2) g/dL Albumin 3.4 L (3.5-5.0) g/dL 04/30/20 Range/Units 12:30 Plt Count (150-450) k/uL APTT 21.4 L (22.0-30.0) sec Sodium (137-145) mmol/L Creatinine (0.66-1.25) mg/dL Glucose (74-99) mg/dL Creatine Kinase (55-170) U/L Total Protein (6.3-8.2) g/dL Albumin (3.5-5.0) g/dL Chest x-ray: report reviewed CT Scan - head: report reviewed Assessment and Plan (1) Change in mental status Current Visit: Yes Status: Acute Code(s): R41.82 - ALTERED MENTAL STATUS, U NSPECIFIED SNOMED Code(s): 207483996 (2) Thrombocytopenia Current Visit: Yes Status: Acute Code(s): D69.6 - THROMBOCYTOPENIA, UNSPECIFIED SNOMED Code(s): 157587702 (3) Elevated troponin Current Visit: Yes Status: Acute Code(s): R79.89 - OTHER SPECIFIED ABNORMAL FINDINGS OF BLOOD CHEMISTRY SNOMED Code(s): 756023405 (4) Rhabdomyolysis Current Visit: Yes Status: Acute Code(s): M62.82 - RHABDOMYOLYSIS SNOMED Code(s): 525899315 (5) Weakness Current Visit: Yes Status: Acute Code(s): R53.1 - WEAKNESS SNOMED Code(s): 90018009 Plan: Assessment and Recommendations: 1. Mild Thrombocytopenia Trending Down - This is likely secondary to problem of Rhabdomyolysis - Continue to monitor CBC, PT/PTT/INR for risk of DIC in this situation - As the underlying problem continues to resolve this should improve. 2. Increased LFTs: - Secondary to Rhabdomyolysis 3. Rhabdomyolysis increased CK - Improving - Monitor CK - Continue Hydration - MOnitor Renal and Liver function - Document strict I and Os 4. Weakness and recurrent fall: - PT/OT evaluation Thank you for allowing us to participate in the care of this patient.
[2020-04-30] MEDS: SODIUM CHLORIDE 0.9% 1,000 ML IV SCH ×2 (19:50→23:04)
[2020-05-01] MEDS: PANTOPRAZOLE 40 MG TABLET PO SCH (05:46)
[2020-05-01 06:44] LABS: Basophils % (A) 0 %; Eosinophils # (A) 0.1 k/uL (0-0.7); Eosinophils % (A) 1 %; HCT 45.3 % (39.0-53.0); HGB 15.2 gm/dL (13.0-17.5); Lymphocytes # (A) 1.4 k/uL (1.0-4.8); Lymphocytes % (A) 21 %; MCH 29.2 pg (25.0-35.0); MCHC 33.6 g/dL (31.0-37.0); MCV 86.8 fL (80.0-100.0); Monocytes # (A) 0.4 k/uL (0-1.0); Monocytes % (A) 6 %; Neutrophils # (A) 4.7 k/uL (1.3-7.7); Neutrophils % (A) 70 %; Platelet Count 147 k/uL (150-450); RBC 5.22 m/uL (4.30-5.90); RDW 12.7 % (11.5-15.5); WBC 6.6 k/uL (3.8-10.6)
[2020-05-01 06:55] LABS: ALT 29 U/L (4-49); AST 39 U/L (17-59); African American GFR (CKD) >90 (>60 ml/min/1.73 sqM); Albumin 3.7 g/dL (3.5-5.0); Alkaline Phosphatase 72 U/L (38-126); Anion Gap 7 mmol/L; Blood Urea Nitrogen 13 mg/dL (9-20); Calcium 9.1 mg/dL (8.4-10.2); Carbon Dioxide 25 mmol/L (22-30); Chloride 104 mmol/L (98-107); Glucose 179 mg/dL (74-99); LDH 616 U/L (313-618); Non-African American GFR(CKD) >90 (>60 ml/min/1.73 sqM); Potassium 4.3 mmol/L (3.5-5.1); Sodium 136 mmol/L (137-145); Total Bilirubin 0.8 mg/dL (0.2-1.3); Total Protein 6.6 g/dL (6.3-8.2)
[2020-05-01 06:58] LABS: Prothrombin Time 10.6 sec (9.0-12.0)
[2020-05-01 06:59] LABS: Partial Thromboplastin Time 21.6 sec (22.0-30.0)
[2020-05-01] MEDS: METOPROLOL SUCCINATE (ER) 25 MG TAB.ER.24H PO SCH (09:04)
[2020-05-01] MEDS: amLODIPine 10 MG TAB PO SCH (09:04)
[2020-05-01] MEDS: ASPIRIN 81 MG PO SCH (09:04)
[2020-05-01] MEDS ORDERED: IBUPROFEN 600 MG TAB PO PRN (10:18)
--- NOTE | 2020-05-01 12:55 | P.CONS ---
History of Present Illness - Chief Complaint Gait disturbance with history of fall - History of Present Illness I had the opportunity to see patient for inpatient rehab consultation with regard to gait disturbance. He was admitted to [facility] April 27 history of fall. Doubt complains of some discomfort in the small of his back as well as the sternum and ribs. In fact report a history of weakness of 3-4 weeks duration previously. X-ray of chest and ribs demonstrates possible fractures left eighth and ninth rib as well as TIA. Head CT with atrophy. C-spine CT was spondylitic change C3, 4 with moderate narrowing C3, 4 and left C4. Chest x-ray negative. PT reports moderate to maximal assistance functional mobility and standing and able take one step. OT reports moderate assistance for upper dressing total assist for lower dressing maximal assistance for bathing. Two- person total assistance for toileting and transfers. OT reports the patient is regressed from yesterday. Previous functional history as elicited from patient corroborative by : 74-year-old left-handed male who is lives and 2 floor home with . Patient works part-time is independent with own cooking, laundry, driving, standing shower and gait without device. PMD was Dr. Brooks may have retired. Patient smokes 3 cigarettes per day has occasional drink. Family history father with hypertension and chronic kidney disease and mother with cancer. Review of Systems Review of systems: ENT: Denies sneezes or discharge. Eyes: Denies discharge or photophobia. Cardiac: Denies chest pain or palpitation. Pulmonary: Denies cough or shortness of breath. Gastrointestinal: Denies nausea, emesis, constipation, diarrhea. Genitourinary: Denies discharge or frequency. Musculoskeletal: Denies muscle or bone aches. Neurologic: reports weakness and coordination problems left side. Endocrine: Denies shakes or sweats. Oncology: Denies cancers. Dermatologic: Denies rash, itching, pruritus. ALLERGY/immunology: Denies sneezes, rashes. Past Medical History Past Medical History: Hyperlipidemia, Hypertension, Myocardial Infarction (AK), Osteoarthritis (OA) Additional Past Medical History / Comment(s): AORTIC ANEURYSM, Last Myocardial Infarction Date:: 2000 History of Any Multi-Drug Resistant Organisms: None Reported Past Surgical History: Heart Catheterization With Stent, Orthopedic Surgery Additional Past Surgical History / Comment(s): AORTIC ANEURYSM, RIPPED L ARM MUSCLE, R KNEE SURGERY, HEART STENT 2000 Past Anesthesia/Blood Transfusion Reactions: No Reported Reaction Date of Last Stent Placement:: 2000 Past Psychological History: No Psychological Hx Reported Smoking Status: Current some day smoker Past Alcohol Use History: None Reported Past Drug Use History: None Reported - Past Family History Mother Family Medical History: Cancer, Diabetes Mellitus Additional Family Medical History / Comment(s): HYSTERECTOMY Father Family Medical History: Diabetes Mellitus Medications and Allergies Home Medications Medication Instructions Recorded Confirmed Type Aspirin 81 mg PO DAILY 12/01/17 04/27/20 History Allergies Allergy/AdvReac Type Severity Reaction Status Date / Time No Known Allergies Allergy Verified 04/27/20 13:23 Physical Exam Vitals: Vital Signs Temp Pulse Resp BP Pulse Ox 05/01/20 11:27 98.0 F 69 16 145/74 93 L 05/01/20 07:51 98.5 F 82 16 174/81 94 L 05/01/20 04:00 98 F 78 18 132/68 95 04/30/20 23:05 85 18 138/65 97 04/30/20 19:57 88 18 142/68 98 04/30/20 16:00 98.2 F 69 16 153/70 97 Intake and Output 04/30/20 05/01/20 05/01/20 22:59 06:59 14:59 Output Total 400 125 Balance -400 -125 Output: Urine 400 125 Other: Voiding Method Toilet Urinal # Voids 1 1 Weight 83 kg Skin: Atrophic, intact. General: Medium build and comfortable appearance. Head: Normocephalic, atraumatic. Eyes: Symmetric. Pupils equal round. Ears: Symmetric. Hearing within normal limits. Mouth: Clear. Neck: Supple. Carotid without bruit. Cardiac: Regular rate and rhythm. Lungs: Clear anteriorly and posteriorly. Abdomen: Soft active nontender. Extremities: Normal tone. Neurological: Mental status: Alert, cooperative, pleasant. Cranial nerves: Symmetric facial tone and trapezius. Motor: Active movement all 4 limbs. Weakness noted left hand of 4/5 and some mild apraxia left hand and left foot. Sensation: Intact throughout. DTRs: Symmetric and equal throughout. Mobility: Sits with physical assistance. Results CBC & Chem 7: 05/01/20 06:09 05/01/20 06:09 Labs: Abnormal Lab Results - Last 24 Hours (Table) 04/30/20 05/01/20 05/01/20 Range/Units 12:30 06:09 06:09 Plt Count 147 L (150-450) k/uL APTT 21.4 L (22.0-30.0) sec Sodium 136 L (137-145) mmol/L Creatinine 0.55 L (0.66-1.25) mg/dL Glucose 179 H (74-99) mg/dL 05/01/20 Range/Units 06:09 Plt Count (150-450) k/uL APTT 21.6 L (22.0-30.0) sec Sodium (137-145) mmol/L Creatinine (0.66-1.25) mg/dL Glucose (74-99) mg/dL Assessment and Plan (1) Change in mental status Current Visit: Yes Status: Acute Code(s): R41.82 - ALTERED MENTAL STATUS, UNSPECIFIED SNOMED Code(s): 633582107 (2) Rhabdomyolysis Current Visit: Yes Status: Acute Code(s): M62.82 - RHABDOMYOLYSIS SNOMED Code(s): 404420783 Plan: Impression: 1. Gait disturbance. 2. New-onset left-sided weakness, stroke result in left hemiparesthesias. 3. Hypertension. 4. Dyslipidemia. 5. Cardiac disease with history of AK. 6. Osteoarthritis. Comments and plan: At this time PT and OT are ongoing. Safety concerns noted. Do not believe patient ready for return to home at this time. Patient demonstrated ability tolerate and benefit from therapies and discussed possible inpatient rehab in both patient and agreeable.
--- NOTE | 2020-05-01 15:39 | P.PN ---
Subjective Progress Note Date: 05/01/20 (delayed charting seen at 0930 ) Principal diagnosis: fall Patient is a 74-year-old male with hypertension, dyslipidemia, and known aortic aneurysm who presented to the emergency department after a fall at home area in the ER he underwent an extensive evaluation. Over the last 3-4 weeks his had noticed that he was getting weaker, having a "shuffling" gait, episodes of confusion and disorientation, and had noticed after his falls and possible slurring of words. In the ER he underwent extensive evaluation. On arrival his blood pressure is elevated at 173/89. Initial laboratory analysis showed a mild thrombocytopenia, CPK 2812, troponin 0.2 to, and urinalysis with protein, glucose, and ketones. He was diagnosed with rhabdomyolysis in the setting of fall and elevated troponin. He was admitted for further monitoring. He underwent a CT of the head and neck which showed mild generalized atrophy with chronic small vessel ischemic changes, moderate spondylitic changes C3/4 and C4/5 with disc herniation and moderate to mild narrowing of the spinal canal. Cardiology was consulted he was continued on IV fluids, and his CPKs were trended. His troponin remained flat and acute coronary syndrome was ruled out. He underwent an echocardiogram which showed a normal ejection fraction with no significant concerns. He was noted to have an elevated AST and ALT which were felt to be secondary to his rhabdo. He is on have some back pain over his stay which had improved. He was then complaining of some left rib cage pain. He underwent an x-ray which did demonstrate a left ninth and 10th hairline rib fracture. He was seen by oncology who felt that his thrombocytopenia was secondary to rhabdomyolysis and recommended followed CBCs. He was seen by PMNR who agreed with possible inpatient rehab. Patient seen and examined at bedside. He complains of pain over his left chest, no shortness of breath, no nausea no vomiting, no lightheadedness, no dizziness. He also complains of right hip and back pain which he states are chronic in nature. was present at bedside. Him and his report that he has been having more difficulty with ambulating. 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 It does not appear that he has had any freezing instances. His describes his gait is shuffling. He does not have difficulty with turning. They do not know a resting tremor or intention tremor, however he does say his hand shakes sometimes when his back pain is bad. He reports some difficulty with concentration recently and confusion. reports that over the last 2 years he has become increasingly outspoken and more easily agitated. They deny any recent changes in medication, supplements. He does report to prior use of LSD and Musculine and that was approximately 50 years ago. Patient and his report that his daughter of suicide this last October, they also lost both her parents over the last 2 years and he has been dealing with a lot of emotional stress. General: non toxic, no distress, appears at stated age Derm: warm, dry Head: atraumatic, normocephalic, symmetric Eyes: EOMI, no lid lag, anicteric sclera Mouth: no lip lesion, mucus membranes moist Cardiovascular: S1S2 reg, no murmur, positive posterior tibial pulse bilateral, Lungs: CTA bilateral, no rhonchi, no rales , no accessory muscle use Abdominal: soft, nontender to palpation, no guarding, no appreciable organomegaly Ext: no gross muscle atrophy, no edema, no contractures Neuro: CN II-XI grossly intact, no tremors noted, we'll rigidity, no slowed movement, muscle strength 4 out of 5 and equal bilateral upper extremities, however patient has difficulty following commands regarding left upper extremity. 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 it is difficult to determine if this is secondary to inability to follow directions versus true neuro deficits on the left. Patient does have difficulty with concentration and does not verbally respond to cuing when I'm asking him to do things with his left hand. Psych: Alert, oriented, flat affect Left arm abnormality with ataxia and confusion - Concern for new CVA VS parkinsons Vs huntingtons - ASA, Statin, tele - echo WNL -Check MRI -Consult neuro -CT of head and neck does demonstrate some neural foraminal narrowing - pt/ot/speech - check lipid profile Fall - PT/OT - IPR Thrombocytopenia -mild and improving - suspect reactive - follow CBC Left rib 9 and 10 fracture - pain control - Incentive spirometer Hypertension, urgency resolved - not on medications at home - follw BP - continue with norvasc and metoprolol Resolved/Chronic: Rhabdomyolysis, resolved Coronary artery disease Elevated troponin secondary to rhabdomyolysis and not reflective of acute coronary syndrome Transaminitis secondary to rhabdo Objective - Vital Signs Vital signs: Vital Signs Temp 98.0 F 05/01/20 11:27 Pulse 69 05/01/20 11:27 Resp 16 05/01/20 11:27 BP 145/74 05/01/20 11:27 Pulse Ox 93 L 05/01/20 11:27 Intake & Output 04/30/20 05/01/20 05/01/20 18:59 06:59 18:59 Intake Total 200 220 Output Total 400 125 Balance 200 -400 95 Weight 83 kg Intake: Oral 200 220 Output: Urine 400 125 Other: Voiding Method Toilet Toilet Urinal Urinal # Voids 1 1 - Labs CBC & Chem 7: 05/01/20 06:09 05/01/20 06:09 Labs: Abnormal Lab Results - Last 24 Hours (Table) 05/01/20 05/01/20 05/01/20 Range/Units 06:09 06:09 06:09 Plt Count 147 L (150-450) k/uL APTT 21.6 L (22.0-30.0) sec Sodium 136 L (137-145) mmol/L Creatinine 0.55 L (0.66-1.25) mg/dL Glucose 179 H (74-99) mg/dL
--- NOTE | 2020-05-01 16:38 | P.PN ---
Subjective Progress Note Date: 05/01/20 Principal diagnosis: Rhabdo Platelets are improving as underlying problem resolves Objective - Vital Signs Vital signs: Vital Signs Temp 97.8 F 05/01/20 16:00 Pulse 76 05/01/20 16:00 Resp 16 05/01/20 16:00 BP 157/73 05/01/20 16:00 Pulse Ox 98 05/01/20 16:00 Intake & Output 04/30/20 05/01/20 05/01/20 18:59 06:59 18:59 Intake Total 200 220 Output Total 400 125 Balance 200 -400 95 Weight 83 kg Intake: Oral 200 220 Output: Urine 400 125 Other: Voiding Method Toilet Toilet Urinal Urinal Urinal Indwelling Catheter # Voids 1 1 - Exam - Constitutional General appearance: cooperative, no acute distress - EENT Eyes: EOMI, dentition normal ENT: NA/AT, normal oropharynx - Neck Neck: normal ROM - Respiratory Respiratory: bilateral: CTA (no increased effort) - Cardiovascular Rhythm: regular Heart sounds: normal: S1, S2 - Gastrointestinal General gastrointestinal: normal bowel sounds, soft - Integumentary Integumentary: normal - Neurologic decreased coordination and atrophy noted - Musculoskeletal Musculoskeletal: right sided weakness, left sided weakness - Psychiatric - Labs CBC & Chem 7: 05/01/20 06:09 05/01/20 06:09 Labs: Abnormal Lab Results - Last 24 Hours (Table) 05/01/20 05/01/20 05/01/20 Range/Units 06:09 06:09 06:09 Plt Count 147 L (150-450) k/uL APTT 21.6 L (22.0-30.0) sec Sodium 136 L (137-145) mmol/L Creatinine 0.55 L (0.66-1.25) mg/dL Glucose 179 H (74-99) mg/dL Assessment and Plan (1) Change in mental status Current Visit: Yes Status: Acute Code(s): R41.82 - ALTERED MENTAL STATUS, UNSPECIFIED SNOMED Code(s): 612804051 (2) Thrombocytopenia Current Visit: Yes Status: Acute Code(s): D69.6 - THROMBOCYTOPENIA, UNSP ECIFIED SNOMED Code(s): 048817411 (3) Elevated troponin Current Visit: Yes Status: Acute Code(s): R79.89 - OTHER SPECIFIED ABNORMAL FINDINGS OF BLOOD CHEMISTRY SNOMED Code(s): 722314340 (4) Rhabdomyolysis Current Visit: Yes Status: Acute Code(s): M62.82 - RHABDOMYOLYSIS SNOMED Code(s): 164119621 (5) Weakness Current Visit: Yes Status: Acute Code(s): R53.1 - WEAKNESS SNOMED Code(s): 67189036 Plan: Assessment and Recommendations: 1. Mild Thrombocytopenia: Improved/Resolving - This is likely secondary to problem of Rhabdomyolysis - Continue to monitor CBC, PT/PTT/INR for risk of DIC if platelets continue to trend down - As the underlying problem continues to resolve this should improve. 2. Increased LFTs:Resolved - Secondary to Rhabdomyolysis 3. Rhabdomyolysis increased CK - Improving - Monitor CK - Continue Hydration - Monitor Renal and Liver function - Document strict I and Os 4. Weakness and recurrent fall: - PT/OT evaluation Physician Attes: I have completed the full history and physical and developed the complete assessment and plan, agree with dictation. Dictated as a scribe
--- NOTE | 2020-05-01 17:43 | MR ---
EXAMINATION TYPE: MR brain wo con DATE OF EXAM: 05/01/2020 COMPARISON: None HISTORY: CVA vs parkinsons Multiplanar multiecho imaging of the brain was performed without contrast. There is a 7 x 4.7 cm area of increased signal involving the entire right posterior temporal lobe ext ending into the lateral right occipital lobe on the diffusion images. This is consistent with acute o r subacute infarct. This is a change compared to the CT scan of 04/27/2020. There is no mass effect. T he ventricles have normal size. There is a 7 mm focus of increased signal lateral left thalamus on th e diffusion images also consistent with acute infarct. There is no midline shift. There is diffuse ce rebral cortical atrophy. There is some thinning of the corpus callosum. Sella turcica is intact. Cere bellum is intact. On the FLAIR images there are scattered white matter high signal foci in both cerebral hemispheres. T otal number is approximately 25 and these measure up to almost 1 cm. IMPRESSION: Large acute or subacute ischemic infarct right posterior temporal lobe in the right middle cerebral a rtery distribution. Small acute infarct lateral left thalamus. No evidence of hemorrhage. Multiple white matter high signal foci in both cerebral hemispheres consistent with chronic small ves ritu ischemia. Exam was discussed with the patient's nurse Carley on the floor at 5:40 PM.
[2020-05-01] MEDS: SODIUM CHLORIDE 0.9% 1,000 ML IV SCH (18:02)
--- NOTE | 2020-05-01 19:45 | CT ---
EXAMINATION TYPE: CT angio head neck DATE OF EXAM: 05/01/2020 COMPARISON: None HISTORY: Left temporal lobe infarct CT DLP: 1538.2 mGycm Automated exposure control for dose reduction was used. CONTRAST: Performed with IV Contrast, patient injected with 65 mL of Isovue 370. There are 3-D post processed images. There is normal branching pattern of the great vessels on the aortic arch. There is bilateral arteria l flow in the subclavian arteries. There is arterial flow in the common internal and external carotid arteries bilaterally. There is bilateral arterial flow in the vertebral arteries. There is minimal p laque at the carotid bifurcations and less than 10% stenosis. There is no evidence of carotid or vert ebral artery aneurysm or dissection. There is arterial flow in the vertebrobasilar artery system. The re is arterial flow in the anterior middle and posterior cerebral arteries. I see no evidence of intr acranial arterial stenosis. There is normal contrast opacification of the venous sinuses. There is la rge hypodense area involving the right posterior temporal parietal lobe consistent with subacute infa rct. I see no evidence of neovascularity. There is no mass effect. IMPRESSION: Large right side posterior temporal parietal ischemic infarct. No evidence of hemodynamic stenosis of the intracranial arteries. Negative CT angiogram of the neck.
[2020-05-01] MEDS: ATORVASTATIN 40 MG TAB PO SCH (20:59)
[2020-05-01] MEDS: levETIRAcetam 250 MG TAB PO SCH (20:59)
[2020-05-01] MEDS: ACETAMINOPHEN TAB 325 MG TAB PO PRN (20:59)
--- NOTE | 2020-05-01 22:01 | P.CNNES ---
History of Present Illness Consult date: 05/01/20 Reason for Consult: Acute infarct right temporal lobe Chief complaint: Acute clinical change on hospital day 4 History of Present Illness: This is a new neurology consult requested for a 74-year-old gentleman who came in on April 27 by his for increasing weakness over the last 3-4 weeks. What prompted the admission was due to her concern falling out of the bed. He was seen in the emergency room and underwent a comprehensive workup. His EKG showed a normal sinus rhythm with 82 bpm but LAD and right middle branch block. Computed tomography scan of the head did not show any acute infarct on admission. CT of the C-spine however did show moderate degenerative disc disease with some spondylitic changes in C3-C4 and C4-C5 with disc herniation mild to moderate narrowing of the spinal cord. CK was elevated at her level of 2812 consistent with a rapid myelolysis. BNP was also elevated up to 1240. BUN/creatinine are normal. Next Patient's past medical history is significant for abdominal aortic aneurysm. Neurology consult was requested after the patient had a change this afternoon where he was having difficulty getting off the toilet and his left arm was noted to be weak and somewhat ataxic and confused. I was notified at 5:42 PM be a perfect serve of an acute infarct involving the right temporal lobe. My assessment of the NIH stroke scale was 8 with the patient having some evidence of a partial hemianopsia. Minor paralysis with flattening of the nasolabial fold. There was significant weakness noted in the left arm and drift noted in the left leg. Limb ataxia was also noted in the left arm. With language assessment he had some loss of fluency but without any significant limitation on ideas and ability to express form giving him one point on that. There was no evidence of any dysarthria. He had some minor difficulties with neglect with visual auditory spatial and personal inattention giving him a total of 1.. His total NIH stroke scale was 9. A stat CT angiogram of the head and neck was obtained this evening which was negative for any large vessel occlusion, aneurysm dissection or high-grade stenosis. Review of the computed tomography scan shows a large acute subacute infarct involving the right temporal lobe. Based on the size I would not recommend any further antiplatelet dosing other than 81 mg of aspirin at this time. This is due to the large area stroke which is increased risk for hemorrhage. Past Medical History Past Medical History: Hyperlipidemia, Hypertension, Myocardial Infarction (MD), Osteoarthritis (OA) Additional Past Medical History / Comment(s): AORTIC ANEURYSM, Last Myocardial Infarction Date:: 2000 History of Any Multi-Drug Resistant Organisms: None Reported Past Surgical History: Heart Catheterization With Stent, Orthopedic Surgery Additional Past Surgical History / Comment(s): AORTIC ANEURYSM, RIPPED L ARM MUSCLE, R KNEE SURGERY, HEART STENT 2000 Past Anesthesia/Blood Transfusion Reactions: No Reported Reaction Date of Last Stent Placement:: 2000 Past Psychological History: No Psychological Hx Reported Smoking Status: Current some day smoker Past Alcohol Use History: None Reported Past Drug Use History: None Reported - Past Family History Mother Family Medical History: Cancer, Diabetes Mellitus Additional Family Medical History / Comment(s): HYSTERECTOMY Father Family Medical History: Diabetes Mellitus Medications and Allergies Home Medications Medication Instructions Recorded Confirmed Type Aspirin 81 mg PO DAILY 12/01/17 04/27/20 History Allergies Allergy/AdvReac Type Severity Reaction Status Date / Time No Known Allergies Allergy Verified 04/27/20 13:23 Physical Examination - Vital Signs Vital Signs: Vital Signs Temp Pulse Resp BP Pulse Ox 05/01/20 20:36 158/77 05/01/20 19:28 97.9 F 72 18 166/73 95 05/01/20 16:00 97.8 F 76 16 157/73 98 05/01/20 11:27 98.0 F 69 16 145/74 93 L 05/01/20 07:51 98.5 F 82 16 174/81 94 L 05/01/20 04:00 98 F 78 18 132/68 95 04/30/20 23:05 85 18 138/65 97 Intake and Output 05/01/20 05/01/20 05/01/20 06:59 14:59 22:59 Intake Total 220 Output Total 400 125 Balance -400 95 Intake: Oral 220 Output: Urine 400 125 Other: Voiding Method Urinal # Voids 1 Weight 83 kg Neurologic exam Mental status: Patient is awake but somewhat distracted. His speech is fluent but slow. He is able to follow commands but at times has some inattention. Pupils: 2 mm equally reactive to light and accommodation. Further neurologic exam was performed with the NIH stroke scale total score of 9. Next Gen. examination Appearance: No acute distress HEET: Clear sclera clear oropharynx neck appears supple. Pulses: Radial pedal pulses are equal and symmetric. Extremities: No clubbing of the digits noted no edema noted in the hands or feet. Results - Laboratory Findings CBC and BMP: 05/01/20 06:09 05/01/20 06:09 Abnormal Lab Findings: Abnormal Labs 04/27/20 04/27/20 04/27/20 13:35 13:35 13:35 Plt Count 138 L Neutrophils # 7.8 H APTT Sodium 135 L Chloride Creatinine 0.55 L Glucose 163 H AST 84 H Creatine Kinase 2812 H* CK-MB (CK-2) Troponin I 0.220 H* Total Protein Albumin Urine Protein Urine Glucose (UA) Urine Ketones Urine Blood Urine Mucus 04/27/20 04/27/20 04/27/20 13:35 15:27 19:35 Plt Count Neutrophils # APTT Sodium Chloride Creatinine Glucose AST Creatine Kinase CK-MB (CK-2) 8.1 H Troponin I 0.363 H* Total Protein Albumin Urine Protein 2+ H Urine Glucose (UA) 4+ H Urine Ketones 2+ H Urine Blood Large H Urine Mucus Few H 04/28/20 04/28/20 04/28/20 01:03 06:17 06:17 Plt Count 129 L Neutrophils # APTT Sodium 134 L Chloride Creatinine 0.50 L Glucose 135 H AST 90 H Creatine Kinase 2820 H* CK-MB (CK-2) Troponin I 0.385 H* Total Protein 6.1 L Albumin 3.4 L Urine Protein Urine Glucose (UA) Urine Ketones Urine Blood Urine Mucus 04/29/20 04/29/20 04/29/20 05:56 05:56 05:56 Plt Count 127 L Neutrophils # APTT Sodium Chloride 108 H Creatinine 0.51 L Glucose 158 H AST 79 H Creatine Kinase CK-MB (CK-2) 5.3 H Troponin I Total Protein 5.9 L Albumin 3.3 L Urine Protein Urine Glucose (UA) Urine Ketones Urine Blood Urine Mucus 04/29/20 04/30/20 04/30/20 05:56 05:11 05:11 Plt Count 117 L Neutrophils # APTT Sodium 135 L Chloride Creatinine 0.53 L Glucose 210 H AST Creatine Kinase 1324 H* CK-MB (CK-2) Troponin I Total Protein 6.0 L Albumin 3.4 L Urine Protein Urine Glucose (UA) Urine Ketones Urine Blood Urine Mucus 04/30/20 04/30/2020 05:11 12:30 06:09 Plt Count 147 L Neutrophils # APTT 21.4 L Sodium Chloride Creatinine Glucose AST Creatine Kinase 649 H CK-MB (CK-2) Troponin I Total Protein Albumin Urine Protein Urine Glucose (UA) Urine Ketones Urine Blood Urine Mucus 05/01/20 05/01/20 06:09 06:09 Plt Count Neutrophils # APTT 21.6 L Sodium 136 L Chloride Creatinine 0.55 L Glucose 179 H AST Creatine Kinase CK-MB (CK-2) Troponin I Total Protein Albumin Urine Protein Urine Glucose (UA) Urine Ketones Urine Blood Urine Mucus Assessment and Plan Assessment: This is 74-year-old gentleman who was brought in several days ago by his due to increasing weakness in the a fall out of the bed early in the morning. His initial workup consisted of a negative computed tomography scan of the head however he he does have evidence of spondylitic changes in herniation in the neck. Today the patient had an acute change and has been determined not have a acute subacute large infarct in the right temporal lobe. CT angiogram of the head and neck were performed and have ruled out any large vessel occlusion, aneurysm, dissection or high-grade stenosis. Due to the large size of this infarct antiplatelet therapy must be monitored carefully. Would recommend that we stay at this time only on 81 mg of aspirin and have a follow-up computed tomography scan in the morning to monitor for any possible increased cerebral edema or hemorrhagic conversion. Due to the location of the temporal lobe, this is an increased risk for complex partial seizures in this territory. Would recommend an EEG to rule out possible's risk for subclinical seizure activity. I would not recommend at this time any anticonvulsant medication however. Seizure precautions and aspiration precaution should be in place. Due to this patient's 3-4 week history of generalized weakness progressing I would also like to rule out myasthenia gravis and will be ordering this evening acetylcholine receptor antibodies. This patient does require full evaluation with speech therapy for formal speech swallow evaluation as well as in depth assessment by PT and OT and assessment for acute rehab as soon as possible. This patient should remain on gentle hydration overnight with normal saline 90 mL/h. Bedside swallow evaluation should be in place. If there is any acute clinical change or deterioration please contact Dr. Gómez at [phone]. Merritt ro check should occur every 2 hours due to this acute stroke. Recommendations 1. Follow-up computed tomography scan noncontrast in a.m. to assure there has not been hemorrhagic conversion. 2. Continue on only 81 mg aspirin daily. 3. Hemoglobin A1c, lipid panel CBC with differential CMP acetylcholine antibodies for myasthenia gravis work up. 4. Formal speech therapy evaluation in a.m. with modified barium swallow. 5. PT OT evaluation. 6. Case management evaluation for acute rehab placement 7. PT PTT INR in a.m. 8. Aspiration precautions and seizure precautions in place per nursing protocol 9. Neuro checks every 2 hours over the next 24 hours. 10. Allow for permissive hypertension over the next several hours. A reduction of the mean arterial pressure by no more than 15% in the first 24 hours of stroke is a guideline. Maintain systolic blood pressure between 130-140 and diastolic blood pressures between 80 and 90. 11. Target LDL should be less than 70 mg/dL. Continue with current statin. This patient's prognosis remains very guarded. Further recommendations will be made as this case evolves. Thank you for this consultation.
[2020-05-01 23:25] LABS: Prothrombin Time 10.4 sec (9.0-12.0)
[2020-05-01 23:35] LABS: T4, Free (Free Thyroxine) 1.3 ng/dL (0.78-2.19)
[2020-05-01 23:42] LABS: Partial Thromboplastin Time 21.7 sec (22.0-30.0)
[2020-05-02] MEDS: SODIUM CHLORIDE 0.9% 1,000 ML IV SCH ×2 (03:43→15:51)
[2020-05-02] MEDS: PANTOPRAZOLE 40 MG TABLET PO SCH (06:02)
[2020-05-02 06:48] LABS: HCT 45.6 % (39.0-53.0); HGB 14.6 gm/dL (13.0-17.5); MCH 27.9 pg (25.0-35.0); MCV 87.1 fL (80.0-100.0); Mean Platelet Volume 9.5; Platelet Count 155 k/uL (150-450); RBC 5.23 m/uL (4.30-5.90); RDW 12.9 % (11.5-15.5); WBC 7.2 k/uL (3.8-10.6)
[2020-05-02 07:12] LABS: ALT 26 U/L (4-49); AST 31 U/L (17-59); African American GFR (CKD) >90 (>60 ml/min/1.73 sqM); Albumin 3.6 g/dL (3.5-5.0); Alkaline Phosphatase 72 U/L (38-126); Anion Gap 7 mmol/L; Blood Urea Nitrogen 19 mg/dL (9-20); Calcium 9.2 mg/dL (8.4-10.2); Carbon Dioxide 26 mmol/L (22-30); Chloride 103 mmol/L (98-107); Cholesterol 183 mg/dL (<200); Glucose 161 mg/dL (74-99); HDL Cholesterol 48 mg/dL (40-60); LDL Cholesterol,Calculated 114 mg/dL (0-99); Magnesium 1.8 mg/dL (1.6-2.3); Non-African American GFR(CKD) >90 (>60 ml/min/1.73 sqM); Phosphorus 3.2 mg/dL (2.5-4.5); Potassium 4.3 mmol/L (3.5-5.1); Sodium 136 mmol/L (137-145); Total Bilirubin 0.8 mg/dL (0.2-1.3); Total Protein 6.4 g/dL (6.3-8.2); Triglycerides 107 mg/dL (<150)
[2020-05-02] MEDS: ASPIRIN 81 MG PO SCH (08:48)
[2020-05-02] MEDS: levETIRAcetam 250 MG TAB PO SCH ×2 (08:48→20:09)
--- NOTE | 2020-05-02 09:54 | CT ---
EXAMINATION TYPE: CT brain wo con DATE OF EXAM: 05/02/2020 COMPARISON: 04/27/2020 HISTORY: 74-year-old male follow up stroke TECHNIQUE: Examination was done in axial plane without intravenous contrast. Coronal and sagittal r econstructions performed. CT DLP: 889.1 mGycm Automated exposure control for dose reduction was used. FINDINGS: Evolution to extensive hypodensity at the right frontoparietal junction and anterior right parietal l obe with corresponding sulcal effacement. No midline shift or herniation. No hydrocephalus. Some vessels are seen coursing throughout the region of infarcted brain parenchyma. No evidence for a cute intracranial hemorrhage Background of moderate patchy white matter hypodensities in both cerebral hemispheres. Mild mucosal thickening ethmoid air cells. Mastoid air cells are well pneumatized. IMPRESSION: Evolving acute to subacute right MCA territory infarct with corresponding sulcal effacement. No midli ne shift or herniation. No hemorrhagic transformation seen. Background of moderate patchy burden of chronic small vessel ischemic disease.
[2020-05-02] MEDS ORDERED: MORPHINE SULFATE 2 MG/ML SYRINGE IVP STA (10:33)
[2020-05-02 12:00] LABS: Folate, Serum 8.3 ng/mL
[2020-05-02] MEDS ORDERED: METHOCARBAMOL 750 MG TAB PO PRN (12:30)
--- NOTE | 2020-05-02 15:55 | P.PN ---
Subjective Progress Note Date: 05/02/20 (Delayed charting seen at approx 1030) Principal diagnosis: fall Patient is a 74-year-old male with hypertension, dyslipidemia, and known aortic aneurysm who presented to the emergency department after a fall at home area in the ER he underwent an extensive evaluation. Over the last 3-4 weeks his had noticed that he was getting weaker, having a "shuffling" gait, episodes of confusion and disorientation, and had noticed after his falls and possible slurring of words. In the ER he underwent extensive evaluation. On arrival his blood pressure is elevated at 173/89. Initial laboratory analysis showed a mild thrombocytopenia, CPK 2812, troponin 0.2 to, and urinalysis with protein, glucose, and ketones. He was diagnosed with rhabdomyolysis in the setting of fall and elevated troponin. He was admitted for further monitoring. He underwent a CT of the head and neck which showed mild generalized atrophy with chronic small vessel ischemic changes, moderate spondylitic changes C3/4 and C4/5 with disc herniation and moderate to mild narrowing of the spinal canal. Cardiology was consulted he was continued on IV fluids, and his CPKs were trended. His troponin remained flat and acute coronary syndrome was ruled out. He underwent an echocardiogram which showed a normal ejection fraction with no significant concerns. He was noted to have an elevated AST and ALT which were felt to be secondary to his rhabdo. He is on have some back pain over his stay which had improved. He was then complaining of some left rib cage pain. He underwent an x-ray which did demonstrate a left ninth and 10th hairline rib fracture. He was seen by oncology who felt that his thrombocytopenia was secondary to rhabdomyolysis and recommended followed CBCs. He was seen by COLE Holt who agreed with possible inpatient rehab. He underwent an MRI of the brain which showed a large acute or subacute ischemic infarct in the right posterior temporal lobe and the right MCA distribution along with a small acute infarct in the left thalamus. He underwent a CT of the head and neck which showed no hemodynamic significant stenosis of the internal carotids. He was seen by neurology who agreed with statin therapy and aspirin. His metoprolol and Norvasc were held to allow for permissive hypertension. Head CT was repeated on 05/02 which did show extensive hypodensity in the right frontoparietal junction in the right parietal lobe with sulcal effacement. Cardiology was re-consulted and plan is for SONAM. Patient seen and examined at bedside. Reports that rib pain is worse today with having to get on and off the table for CT and MRI. Denies any headache, nausea, vomiting, shortness of breath, difficulty with vision. Continues to have some weakness but he thinks it might be getting better. General: non toxic, no distress, appears at stated age Derm: warm, dry Head: atraumatic, normocephalic, symmetric Eyes: EOMI, no lid lag, anicteric sclera Mouth: no lip lesion, mucus membranes moist Cardiovascular: S1S2 reg, no murmur, positive posterior tibial pulse bilateral, Lungs: CTA bilateral, no rhonchi, no rales , no accessory muscle use Abdominal: soft, nontender to palpation, no guarding, no appreciable organomegaly Ext: no gross muscle atrophy, no edema, no contractures Neuro: CN II-XI grossly intact, no tremors noted, left hand weakness Psych: Alert, oriented, flat affect Acute to Subacute stroke right temporal lobe with small acute stroke left thalamus - A fluter with 2:1 block Vs SVT on tele from 05/01. Await cardio recs - ASA, Statin, tele - echo WNL - Neuro recs appreciated - repeat head CT in 24 hours - pt/ot/speech - LDL normal Fall - PT/OT - IPR Left rib 9 and 10 fracture - pain control add robaxin - Incentive spirometer Hypertension, urgency resolved - off metoprolol and norvasc to allow for 24 hours of permissive HTN - resume in AM - follw BP Resolved/Chronic: Thrombocytopenia, resolved Rhabdomyolysis, resolved Coronary artery disease Elevated troponin secondary to rhabdomyolysis and not reflective of acute coronary syndrome Transaminitis secondary to rhabdo DVT prophylaxis: SCDs Discussed with: patient, nursing. Dr Gómez, Dr. Hannon Anticipated discharge: [address]: [facility] A total of 45 minutes was spent on the care of this complex patient more than 50% of the time was spent in counseling and care coordination. Objective - Vital Signs Vital signs: Vital Signs Temp 97.5 F L 05/02/20 11:47 Pulse 75 05/02/20 11:47 Resp 16 05/02/20 11:47 BP 184/88 05/02/20 11:47 Pulse Ox 95 05/02/20 11:47 Intake & Output 0605/02/20 05/02/20 18:59 06:59 18:59 Intake Total 220 480 Output Total 125 175 350 Balance 95 -175 130 Weight 81 kg Intake: Oral 220 480 Output: Urine 125 175 350 Other: Voiding Method Urinal Urinal Indwelling Catheter # Voids 1 - Labs CBC & Chem 7: 05/02/20 05:29 05/02/20 05:29 Labs: Abnormal Lab Results - Last 24 Hours (Table) 05/01/20 05/02/20 Range/Units 22:18 05:29 APTT 21.7 L (22.0-30.0) sec Sodium 136 L (137-145) mmol/L Creatinine 0.57 L (0.66-1.25) mg/dL Glucose 161 H (74-99) mg/dL LDL Cholesterol, Calc 114 H (0-99) mg/dL
--- NOTE | 2020-05-02 17:38 | PN ---
PROGRESS NOTE FOLLOW-UP NOTE: This is a 74-year-old gentleman who is been in the hospital since 04/27/2020. The patient was initially evaluated by my associate, Dr. Chavez, for elevated troponin, and Cardiology had been signed off from the care of this patient. We have been asked to reassess the patient for a transesophageal echo, as patient had a CVA during this hospitalization. The patient developed acute right temporal lobe infarct on 05/01/2020, and this is something that happened after his hospitalization. An echocardiogram on this admission revealed normal LV function. An EKG initially showed normal sinus rhythm. An MRI of the brain showed a large ischemic infarct involving the right posterotemporal lobe in the right middle cerebral artery distribution. Reviewing the rhythm strips, we see that there were episodes where the patient is developing a heart rate of 150 beats per minute, which could be due to episodes of atrial flutter with 2:1 block. This patient's CVA may be related to it. The patient should be anticoagulated once we are able to anticoagulate him. I am going to let the neurologist let us know when it is safe to anticoagulate this patient who has a large area of infarct. On my evaluation, patient is alert, oriented and is answering questions appropriately. On exam he is afebrile. Heart rate is 77 beats per minute. Blood pressure is 150/70, respiratory rate 18. Chest exam reveals good air entry bilaterally. Heart exam reveals first and second heart sounds. No gallop. There is a systolic murmur at the left lower sternal border. Abdomen is soft. Examination of extremities did not reveal any edema. I did not perform a detailed [employer] exam. Labs show a creatinine of 0.5, hemoglobin of 14.6. TSH is 2.4. LDL cholesterol is 114. ASSESSMENT: 1. Acute cerebrovascular accident with right temporal lobe infarct. 2. Cardiac arrhythmia; probably episodes of atrial flutter with 2:1 conduction, which could explain the thromboembolic event. PLAN: I will ask Dr. Chavez, who saw the patient initially, to perform a transesophageal echo tomorrow to rule out intracardiac thrombus and to rule out any PFO and to rule out any [id number] shunt. The patient should be started on an oral anticoagulant whenever it is considered safe by the neurologist. MMODL / IJN: [id number] /
--- NOTE | 2020-05-02 19:22 | P.PN ---
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 His vital signs are stable still blood pressure systolic is elevated in the 150s though. Patient still can follow commands but waxes and wanes between his orientation to place. He remains oriented to person. Objective - Vital Signs Vital signs: Vital Signs Temp 98.5 F 05/02/20 15:41 Pulse 75 05/02/20 15:41 Resp 16 05/02/20 15:41 BP 136/65 05/02/20 15:41 Pulse Ox 95 05/02/20 15:41 Intake & Output 05/02/20 05/02/20 05/03/20 06:59 18:59 06:59 Intake Total 480 Output Total 175 500 Balance -175 -20 Weight 81 kg Intake: Oral 480 Output: Urine 175 500 Other: Voiding Method Urinal # Voids 1 - Exam Patient examined chart reviewed Computed tomography scan follow up this morning shows now be evolving of the acute subacute right MCA infarct with more sulcal effacement. However I believe there does appear to be some involvement in the posterior cerebral artery territory confirming that this could potentially be cardioembolic. Patient is going to be scheduled by cardiology for transesophageal echo tomorrow morning. There is now more sulcal effacement which indicates there is more edema occurring. No midline shift or hemorrhagic conversion as of this time. This computed tomography scan was performed this morning at approximately 9 AM. Patient underwent an EEG for concern due to the stroke being large involving the temporal lobe increased risk for seizure activity. The EEG was a wake drowsy study did not show any evidence of seizure activity at this time. The NIH stroke scale this evening with this mental status change was now up from 9-13. He also appears weaker now involving the left leg and left arm now presents with a dense plegia. - Labs CBC & Chem 7: 05/02/20 05:29 05/02/20 05:29 Labs: Abnormal Lab Results - Last 24 Hours (Table) 05/01/20 05/02/20 Range/Units 22:18 05:29 APTT 21.7 L (22.0-30.0) sec Sodium 136 L (137-145) mmol/L Creatinine 0.57 L (0.66-1.25) mg/dL Glucose 161 H (74-99) mg/dL LDL Cholesterol, Calc 114 H (0-99) mg/dL Assessment and Plan Assessment: This is 74-year-old gentleman who was brought in several days ago by his due to increasing weakness & a fall out of the bed early in the morning. His initial workup consisted of a negative computed tomography scan of the head, however he does have evidence of spondylitic changes in herniation in the neck. Yesterday the patient had an acute clinical change on the day shift with difficulty getting out of the bathroom. We confirmed yesterday that indeed he had a large extensive right middle cerebral artery infarct. CT angiogram of the head and neck were performed and have ruled out any large vessel occlusion, aneurysm, dissection or high-grade stenosis. Follow-up scan this morning now shows an evolving acute- subacute right middle cerebral infarct with increasing sulcal effacement consistent with edema without MLS or hemorrhagic conversion. This evening at approximately 6:30 PM the patient showed acute mental status changes. A stat computed tomography scan of the head has been ordered , to determine if this patient has increasing mass effect or possibly hemorrhagic conversion. An EEG was completed this morning he did not show any evidence of epileptiform activity. Nevertheless due to the location of this large infarct I would recommend we keep him on the lowest dose of Keppra for seizure prevention. His case was discussed with speech therapy today and he did pass the swallow evaluation and has been cleared for heart healthy diet. PT and OT is working with him and we are hoping for expedited placement into acute rehab once cardiology clears him. Summary 1. Large right middle cerebral artery territory infarct ischemic with now sulcal effacement. 2. Acute change in mental status this evening with NIH stroke scale increasing from 9-13 3. Normal EEG 4. Suspect cardioembolic etiology, my review of the scan this morning shows evidence of some possible infarction involving the right posterior sural artery territory Recommendations 1. Stat computed tomography scan of the head tonight without contrast. If there is further mass effect evolving or hemorrhagic conversion we'll plan on transferring to higher level of care. 2. Stat evaluation for DVT in the lower extremities via ultrasound. 3. Place patient on O2 2 L/m 4. Continue with neuro checks every 2 hours while awake. Check pupils with each evaluation. If there is any further deterioration please contact hospitalist military source operations specialist neurologist 5. If there is no indication for transfer this evening continue with our plan tomorrow for transesophageal echo and eventual placement acute rehab. 6. Pending this evening computed tomography scan will still continue on the lowest possible antiplatelet dose of aspirin due to the large size of this infarct and increased risk for bleeding. Using within 72 hours if everything stabilizes we'll consider increasing aspirin. This patient's prognosis remains very guarded. Further recommendations will be made as this case evolves. Thank you for this consultation.
--- NOTE | 2020-05-02 19:55 | CT ---
EXAMINATION TYPE: CT brain wo con DATE OF EXAM: 05/02/2020 HISTORY: Syncope. CT DLP: 1173.4 mGycm. Automated Exposure Control for Dose Reduction was Utilized. TECHNIQUE: CT scan of the head is performed without contrast. COMPARISON: CT brain from earlier today and April 27, 2020. MRI brain from yesterday. FINDINGS: There is no acute intracranial hemorrhage or midline shift identified. There is diffuse v entricular and sulcal prominence consistent with diffuse age-related cerebral atrophy. There is low- attenuation in the periventricular white matter consistent with chronic small vessel ischemic change. Evolving acute/subacute infarct high right parietal region redemonstrated with sulcal effacement and local mass effect. Thrombosed or hyperdense vessel at this level remains present inferiorly The gideon bes are intact and the visualized sinuses are clear. IMPRESSION: No acute intracranial hemorrhage or midline shift. There is evolving large acute/subacu te infarct centered right parietal lobe redemonstrated on background mild diffuse cerebral atrophy an d chronic small vessel ischemic changes. No significant change from most recent CT
[2020-05-02] MEDS: ACETAMINOPHEN TAB 325 MG TAB PO PRN (20:09)
[2020-05-02] MEDS: ATORVASTATIN 40 MG TAB PO SCH (20:09)
--- NOTE | 2020-05-02 20:20 | US ---
EXAMINATION TYPE: US venous doppler duplex LE DATE OF EXAM: 05/02/2020 8:04 PM COMPARISON: NONE CLINICAL HISTORY: rule out dvt. R/O DVT. Bilateral leg pain.. SIDE PERFORMED: Bilateral TECHNIQUE: The lower extremity deep venous system is examined utilizing real time linear array sonog susan with graded compression, doppler sonography and color-flow sonography. VESSELS IMAGED: External Iliac Vein (EIV) Common Femoral Vein Deep Femoral Vein Greater Saphenous Vein * Femoral Vein Popliteal Vein Small Saphenous Vein * Proximal Calf Veins (* superficial vessels) Right Leg: No evidence of DVT in veins imaged at this time from prox calf veins to EIV. Left Leg: No evidence of DVT in veins imaged at this time from prox calf veins to EIV. IMPRESSION: No ultrasound evidence for acute DVT in either lower extremity.
--- NOTE | 2020-05-03 02:43 | CT ---
EXAMINATION TYPE: CT brain wo con DATE OF EXAM: 05/03/2020 COMPARISON: Yesterday HISTORY: AMS CT DLP: 1209.40 mGycm Automated exposure control for dose reduction was used. There is 8 cm of galicia-white matter hypodensity in the right posterior temporal parietal lobe related to subacute infarct. There is no midline shift. There is no sign of intracranial hemorrhage. There is no mass effect. The calvarium is intact. There is mild cerebral atrophy. IMPRESSION: Large area of subacute infarct right posterior temporal parietal lobe unchanged compared to yesterday . Cerebral atrophy.
--- NOTE | 2020-05-03 02:43 | P.PN ---
Progress Note - Text Progress Note Date: 05/03/20 Patient was seen and examined at the bedside on 05/03 at 1:45 AM. General: Non-toxic, in no acute distress, appears stated age, normal weight HEENT: NC/AT, anicteric sclerae, moist conjunctiva, no lid-lag, PERRLA Cardiovascular: S1/S2 wnl, no murmurs, rubs, or gallops Lungs: Clear to auscultation, normal respiratory effort, no accessory muscle use Abdominal: Soft, non-tender, non-distended, no guarding, rebound, or rigidity Skin: Warm, dry Extremities: No edema or contractures Psychiatric: The patient was alert and oriented to person, place, and partially to time. Neuro: CN II-XII grossly intact, Strength 5/5 of RUE and RLE with 4+/5 on L side with ataxic movements left greater than right with impaired relaxation of engagement specialist strength and rigidity of the left upper extremity, Speech intact, Sensation to light touch grossly intact throughout Discussed the case with neurologist funeral pre need consultant Dr. Gómez who recommended to obtain a repeat computed tomography scan. She noted that if the computed tomography scan reveals midline shift or if the patient's mental status changes, that he should then be transferred for higher level of care with concerns for cerebral edema. Repeat computed tomography scan of brain ordered.
[2020-05-03] MEDS: SODIUM CHLORIDE 0.9% 1,000 ML IV SCH ×4 (03:21→23:49)
[2020-05-03] MEDS: ASPIRIN 81 MG PO SCH (06:10)
[2020-05-03] MEDS: PANTOPRAZOLE 40 MG TABLET PO SCH (06:10)
[2020-05-03] MEDS: levETIRAcetam 250 MG TAB PO SCH ×2 (06:10→20:11)
[2020-05-03 09:05] LABS: HCT 45.5 % (39.0-53.0); HGB 14.6 gm/dL (13.0-17.5); MCH 28.1 pg (25.0-35.0); MCHC 32.1 g/dL (31.0-37.0); MCV 87.5 fL (80.0-100.0); Platelet Count 143 k/uL (150-450); WBC 7.3 k/uL (3.8-10.6)
[2020-05-03] MEDS ORDERED: fentaNYL (PF) 50 MCG/ML 2 ML AMP ONE (09:20)
[2020-05-03 09:22] LABS: ALT 24 U/L (4-49); AST 29 U/L (17-59); African American GFR (CKD) >90 (>60 ml/min/1.73 sqM); Albumin 3.4 g/dL (3.5-5.0); Alkaline Phosphatase 76 U/L (38-126); Anion Gap 9 mmol/L; Blood Urea Nitrogen 17 mg/dL (9-20); Calcium 8.8 mg/dL (8.4-10.2); Carbon Dioxide 21 mmol/L (22-30); Chloride 104 mmol/L (98-107); Glucose 151 mg/dL (74-99); Magnesium 1.8 mg/dL (1.6-2.3); Non-African American GFR(CKD) >90 (>60 ml/min/1.73 sqM); Potassium 4.4 mmol/L (3.5-5.1); Sodium 134 mmol/L (137-145); Total Bilirubin 1.1 mg/dL (0.2-1.3); Total Protein 6.3 g/dL (6.3-8.2)
[2020-05-03] MEDS ORDERED: IV FLUID CONTINUATION 1,000 ML IV ONE (09:40)
[2020-05-03] MEDS ORDERED: fentaNYL (PF) 50 MCG/ML 2 ML AMP IV ONE (09:45)
[2020-05-03] MEDS ORDERED: MIDAZOLAM 2 MG/2 ML VIAL IV ONE (09:45)
[2020-05-03] MEDS ORDERED: BENZOCAINE SPRAY 1 CAN MUCOUS MEM ONE (09:45)
--- NOTE | 2020-05-03 10:01 | P.TEE ---
Indications for Procedure(s): CVA, rule out cardiac source of emboli Date of Procedure: 05/03/20 Preoperative Diagnosis: CVA Postoperative Diagnosis: No cardiac source of emboli documented on the study Procedure(s) Performed: SONAM Description of Procedure(s): INDICATION: To rule out Cardec source of emboli CONSENT:. Verbal consent was obtained from the patient PROCEDURE: Patient was brought to the lab in a fasting state. The throat was sprayed with Cetacaine. Patient was given IV Versed of 2 mg and fentanyl 50 g sedation . A lubricated Omni probe was introduced in the oropharynx and was advanced into the esophagus. Patient tolerated the procedure well. Multiple views were obtained. Color, pulsed and continuous wave Doppler was performed. Saline bubble contrast injection was performed FINDINGS:. The aortic valve is tricuspid and appeared within normal. The tricuspid valve appeared within normal. The interatrial septum is intact without any spontaneous shunt. Contrast bubble injection did not show any c rossing of bubbles. The left atrial appendage is small and free of any clot. Mitral valve showed mild regurgitation coronary appeared to be normal. The left ventricle function appeared within normal. The aortic valve did not show any significant plaque IMPRESSION:. Essentially normal study without evidence of PFO or clot in the left atrial appendage PLAN:. Continue current medical therapy. Investigated for other causes of CVA
--- NOTE | 2020-05-03 10:15 | CDI ---
Documentation Clarification Form Date: 05/03/2020 CDS: Kellen Aguilera, CCS, CCDS Admit Date: 04/27/2020 Patient Name: Teja Masters Discharge Date: ATTENTION: The Clinical Documentation Specialists (CDI) and [facility] Coding Staff appreciate your assistance in clarifying documentation. Please respond to the clarification below the line at the bottom and electronically sign. The CDI & [facility] Coding staff will review the response and follow-up if needed. Please note: Queries are made part of the Legal Health Record. If you have any questions, please contact the author of this message via ITS. Dear Dr. Marlo Hannon: Per the 05/02 Cardiology Progress Note: "Heart rate of 150 beats per minute, which could be due to episodes of atrial flutter with 2:1 block. ASSESSMENT: Cardiac arrhythmia; probably episodes of atrial flutter with 2:1 conduction, which could explain the thromboembolic event." History/Risk factors: Hyperlipidemia, Hypertension, Aortic Aneurysm, current smoker. Clinical Indicators: 74 yo male, presented to the ED via EMS with weakness. Patient had rolled out of bed & was unable to get up, possibly on floor 4-5 hours. Diagnosed with rhabdomyolysis. On 05/01 the patient developed an acute to subacute stroke in the right temporal lobe with small acute stroke in the left thalamus. EKG 04/27: R 82 nsr, left axis deviation, RBBB. Telemetry 05/01: Atrial flutter w/2:1 AV block. Treatment: Lipitor, Keppra, IV Morphine, Telemetry, Cardiology & Neurology Consults. In your professional opinion, in order to capture the severity of condition; can you please clarify the type of Atrial Flutter if known? Typical/Type I Atypical/Type II Other, please specify Unable to determine (Last Revision: February 2018) _atypical ___ MTDD
--- NOTE | 2020-05-03 14:03 | P.PN ---
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 Overnight there was concern that he seems more lethargic. However this morning with family at bedside he is more alert and interactive and able to follow commands without difficulty. He does report however this significant fatigue which is not unusual after a stroke. Objective - Vital Signs Vital signs: Vital Signs Temp 99.1 F 05/03/20 10:24 Pulse 74 05/03/20 12:24 Resp 17 05/03/20 10:24 BP 148/70 05/03/20 12:39 Pulse Ox 96 05/03/20 12:24 Intake & Output 05/02/20 05/03/20 05/03/20 18:59 06:59 18:59 Intake Total 480 100 Output Total 500 175 Balance -20 -175 100 Weight 84.5 kg Intake: IV 100 Oral 480 Output: Urine 500 175 Other: Voiding Method Urinal Urinal # Voids 1 - Exam Patient examined chart reviewed. Trans esophageal echo study reported as normal. However there is concern for atrial flutter in this patient and recommendations by cardiology for oral anticoagulation. Exam: Mental status: Patient drowsy but arousable and able to follow commands. Answers appropriately to questions. Speech is still mildly dysarthric. Patient is oriented to time place and person. Pupils: 2 mm equally reactive to light and accommodation. Cranial nerve examination: Patient tracks well. No nystagmus noted on vertical horizontal gaze. There is still mild facial asymmetry with flattening of the nasolabial fold on the left. Cranial nerve VIII appears intact by clinical observation. Cough reflex is intact. Tongue appears midline without fasciculations deviation. Patient would not perform shoulder shrug to assess. Motor examination mild increase in tone noted in the upper extremities bilaterally. Patient is now able to move the left upper extremity uptake his nose. Right upper extremity: Patient is able to move this up to nipple line. Lower extremity testing: Patient is only able to now lift both legs slightly 5 above the bed without drift bilaterally. He is able to flex and extend both legs equally. Strength testing: Overall generalized weakness with poor effort in testing. No fasciculations or tremor noted. Pronator drift is positive on the left. Deep tendon reflexes: Trace throughout. Plantar responses are withdrawal bilaterally. No ankle clonus is elicited. Coordination testing patient would not cooperate with formal testing. Sensory examination: Patient reports no numbness to any extremity. Patient denies having any pain. Patient feels pinprick is intact in the upper and lower extremities equally. Gait examination deferred - Labs CBC & Chem 7: 05/03/20 08:18 05/03/20 08:18 Labs: Abnormal Lab Results - Last 24 Hours (Table) 05/03/20 05/03/20 Range/Units 08:18 08:18 Plt Count 143 L (150-450) k/uL Sodium 134 L (137-145) mmol/L Carbon Dioxide 21 L (22-30) mmol/L Creatinine 0.52 L (0.66-1.25) mg/dL Glucose 151 H (74-99) mg/dL Albumin 3.4 L (3.5-5.0) g/dL Assessment and Plan Assessment: This is 74-year-old gentleman who was brought in several days ago by his due to increasing weakness & a fall out of the bed early in the morning. His initial workup consisted of a negative computed tomography scan of the head, however he does have evidence of spondylitic changes in herniation in the neck. On hospital day (3) the patient had an acute clinical change on the day shift with difficulty getting out of the bathroom. We confirmed he had a large extensive right middle cerebral artery infarct. CT angiogram of the head and neck were performed and has ruled out any large vessel occlusion, aneurysm, dissection or high-grade stenosis. Due to the large extensive size of this infarct caution has been used in increas ing antiplatelet therapy this we have only maintain him on 81 mg of aspirin without any evidence does far for hemorrhagic conversion. During the course of this hospitalization he underwent a transesophageal echocardiogram which was reported as normal however there is concern that he has been experiencing atrial flutter and cardiology is now recommending oral anticoagulation. Over the last 48 hours after the stroke the patient waxed and waned in his mental status and neurological findings. Today he appears now able to move the left upper extremity better and is more alert and interactive. I anticipate this patient should be able to transfer over the weekend as soon as possible into acute rehab. I'm recommending that on Thursday a follow-up computed tomography scan be obtained to again assure there has been no hemorrhagic conversion and at that time if it is clear, the patient could be transitioned over to oral anticoagulation. There is no formal neurology on site consult available this weekend however if there is any acute deterioration that tele-stroke be consult and for triage and a stat computed tomography scan of the head be obtained. Due to the location of this large infarct I would recommend we keep him on the lowest dose of Keppra for seizure prevention. A follow-up EEG is recommended while he is in inpatient rehab. This patient potentially could be tapered off Keppra over time but I anticipate there is going to be a very large area of encephalomalacia involved which conserve as an epileptogenic focus. This patient's blood pressure also tends to be sustained during the night which can occur with sleep disordered breathing. This patient could benefit from at a minimum a home sleep testing study done while in acute rehab to rule out obstructive sleep apnea. Obstructive sleep apnea is the third leading risk factor for stroke, independent of diabetes, hypertension and atrial fibrillation. Summary 1. Large right middle cerebral artery territory infarct ischemic with now sulcal effacement. No evidence of hemorrhagic conversion 2. Acute change in mental status this evening with NIH stroke scale increasing from 9-13 3. Normal EEG 4. Improvement noted in motor exam today with patient being able now to lift the left arm and hand up to the level of his nose. 5. Normal transesophageal echo. Now suspect for atrial flutter. Cardiology recommending oral anticoagulation. Recommendations 1. Okay to proceed with Lovenox for DVT prevention 2. Patient is cleared to go into acute rehab with the following week recommendations: * Continue with current aspirin dosing * Follow-up computed tomography scan of the head early next week before for starting oral anticoagulation for atrial flutter * Continue with Keppra 500 mg every 12 oral solution. Recommend follow-up EEG while in acute rehab. * Start extended release metoprolol 25 mg by mouth twice a day for blood pressure management. * Continue with PT /OT and speech during this admission. * Continue with current statin therapy * On site neurologist at rehab center should be aware this patient also has a workup in progress for myasthenia gravis. This was initiated based on the history that he was having a general progressive weakness developed over 4 weeks prior to admission. This patient's prognosis remains very guarded. Further recommendations will be made as this case evolves. Thank you for this consultation.
--- NOTE | 2020-05-03 14:15 | P.PN ---
Subjective Progress Note Date: 05/03/20 (delayed charting seen at 0900) Principal diagnosis: fall Patient is a 74-year-old male with hypertension, dyslipidemia, and known aortic aneurysm who presented to the emergency department after a fall at home area in the ER he underwent an extensive evaluation. Over the last 3-4 weeks his had noticed that he was getting weaker, having a "shuffling" gait, episodes of confusion and disorientation, and had noticed after his falls and possible slurring of words. In the ER he underwent extensive evaluation. On arrival his blood pressure is elevated at 173/89. Initial laboratory analysis showed a mild thrombocytopenia, CPK 2812, troponin 0.2 to, and urinalysis with protein, glucose, and ketones. He was diagnosed with rhabdomyolysis in the setting of fall and elevated troponin. He was admitted for further monitoring. He underwent a CT of the head and neck which showed mild generalized atrophy with chronic small vessel ischemic changes, moderate spondylitic changes C3/4 and C4/5 with disc herniation and moderate to mild narrowing of the spinal canal. Cardiology was consulted he was continued on IV fluids, and his CPKs were trended. His troponin remained flat and acute coronary syndrome was ruled out. He underwent an echocardiogram which showed a normal ejection fraction with no significant concerns. He was noted to have an elevated AST and ALT which were felt to be secondary to his rhabdo. He is on have some back pain over his stay which had improved. He was then complaining of some left rib cage pain. He underwent an x-ray which did demonstrate a left ninth and 10th hairline rib fracture. He was seen by oncology who felt that his thrombocytopenia was secondary to rhabdomyolysis and recommended followed CBCs. He was seen by PM and R who agreed with possible inpatient rehab. He underwent an MRI of the brain which showed a large acute or subacute ischemic infarct in the right posterior temporal lobe and the right MCA distribution along with a small acute infarct in the left thalamus. He underwent a CT of the head and neck which sh owed no hemodynamic significant stenosis of the internal carotids. He was seen by neurology who agreed with statin therapy and aspirin. His metoprolol and Norvasc were held to allow for permissive hypertension. Head CT was repeated on 05/02 which did show extensive hypodensity in the right frontoparietal junction in the right parietal lobe with sulcal effacement. Cardiology was re-consulted he had a SONAM which was unremarkable. He has slow continued improvement. Patient seen and examined at bedside. Rib pain is better today. No nausea, SOB, chest pain, or constipation. General: non toxic, no distress, appears at stated age Derm: warm, dry Head: atraumatic, normocephalic, symmetric Eyes: EOMI, no lid lag, anicteric sclera Mouth: no lip lesion, mucus membranes moist Cardiovascular: S1S2 reg, no murmur, positive posterior tibial pulse bilateral, Lungs: Decreased bs bilateral, no rhonchi, no rales , no accessory muscle use Abdominal: soft, nontender to palpation, no guarding, no appreciable organomegaly Ext: no gross muscle atrophy, no edema, no contractures Neuro: CN II-XI grossly intact, no tremors noted, left hand weakness and bilateral leg weakness. Psych: Alert, oriented, flat affect Acute to Subacute stroke right temporal lobe with small acute stroke left thalamus - ASA, Statin, tele - echo WNL - Neuro recs appreciated - repeat head CT 05/07-05/08, then anticoagulation - pt/ot/speech recs - LDL normal - Plan is for IPR at [facility] Probable P A flutter - D/W Neuro repeat head CT next thursday-Thursday and if improvement in edema then can start anticoagulation - tele - cardio recs appreciated - Tele - Metoprolol started with elevated BP Toxic metabolic encephalopathy - treatment as above - supportive care - avoid sedative medications Fall - PT/OT - IPR Left rib 9 and 10 fracture - pain control - Incentive spirometer Hypertension, urgency resolved - Metoprolol - follw BP Resolved/Chronic: Thrombocytopenia, resolved Rhabdomyolysis, resolved Coronary artery disease Elevated troponin secondary to rhabdomyolysis and not reflective of acute coronary syndrome Transaminitis secondary to rhabdo DVT prophylaxis: SCDs Discussed with: patient, nursing. Dr Gómez Anticipated discharge: 1-[address]: IPR A total of 45 minutes was spent on the care of this complex patient more than 50% of the time was spent in counseling and care coordination. Objective - Vital Signs Vital signs: Vital Signs Temp 99.1 F 05/03/20 10:24 Pulse 74 05/03/20 12:24 Resp 17 05/03/20 10:24 BP 148/70 05/03/20 12:39 Pulse Ox 96 05/03/20 12:24 Intake & Output 05/02/20 05/03/20 05/03/20 18:59 06:59 18:59 Intake Total 480 100 Output Total 500 175 Balance -20 -175 100 Weight 84.5 kg Intake: IV 100 Oral 480 Output: Urine 500 175 Other: Voiding Method Urinal Urinal # Voids 1 - Labs CBC & Chem 7: 05/03/20 08:18 05/03/20 08:18 Labs: Abnormal Lab Results - Last 24 Hours (Table) 05/03/20 05/03/20 Range/Units 08:18 08:18 Plt Count 143 L (150-450) k/uL Sodium 134 L (137-145) mmol/L Carbon Dioxide 21 L (22-30) mmol/L Creatinine 0.52 L (0.66-1.25) mg/dL Glucose 151 H (74-99) mg/dL Albumin 3.4 L (3.5-5.0) g/dL
[2020-05-03] MEDS: ENOXAPARIN 40 MG/0.4 ML SYRINGE SQ SCH (15:15)
[2020-05-03 15:50] VITALS: BMI 25.9
[2020-05-03] MEDS: ATORVASTATIN 40 MG TAB PO SCH (20:09)
[2020-05-03] MEDS: METOPROLOL TARTRATE 25 MG TAB PO SCH (20:11)
[2020-05-03] MEDS: ACETAMINOPHEN TAB 325 MG TAB PO PRN (23:54)
[2020-05-04] MEDS: PANTOPRAZOLE 40 MG TABLET PO SCH (06:33)
[2020-05-04 06:48] LABS: HCT 42.8 % (39.0-53.0); HGB 14.1 gm/dL (13.0-17.5); MCH 28.8 pg (25.0-35.0); MCV 87.1 fL (80.0-100.0); Mean Platelet Volume 9.9; Platelet Count 152 k/uL (150-450); RBC 4.92 m/uL (4.30-5.90); RDW 12.6 % (11.5-15.5); WBC 6.7 k/uL (3.8-10.6)
[2020-05-04 06:52] LABS: ALT 24 U/L (4-49); AST 28 U/L (17-59); African American GFR (CKD) >90 (>60 ml/min/1.73 sqM); Albumin 3.3 g/dL (3.5-5.0); Alkaline Phosphatase 85 U/L (38-126); Anion Gap 7 mmol/L; Blood Urea Nitrogen 15 mg/dL (9-20); Calcium 8.8 mg/dL (8.4-10.2); Carbon Dioxide 23 mmol/L (22-30); Chloride 104 mmol/L (98-107); Glucose 133 mg/dL (74-99); Magnesium 1.9 mg/dL (1.6-2.3); Non-African American GFR(CKD) >90 (>60 ml/min/1.73 sqM); Potassium 4.3 mmol/L (3.5-5.1); Sodium 134 mmol/L (137-145); Total Bilirubin 0.9 mg/dL (0.2-1.3); Total Protein 6.1 g/dL (6.3-8.2)
[2020-05-04] MEDS: METOPROLOL TARTRATE 25 MG TAB PO SCH ×2 (08:10→20:45)
[2020-05-04] MEDS: levETIRAcetam 250 MG TAB PO SCH ×2 (08:11→20:44)
[2020-05-04] MEDS: ENOXAPARIN 40 MG/0.4 ML SYRINGE SQ SCH (08:11)
[2020-05-04] MEDS: ASPIRIN 81 MG PO SCH (08:11)
[2020-05-04] MEDS: SODIUM CHLORIDE 0.9% 1,000 ML IV SCH ×2 (08:11→16:21)
[2020-05-04] MEDS: ACETAMINOPHEN TAB 325 MG TAB PO PRN (08:21)
[2020-05-04] MEDS ORDERED: amLODIPine 5 MG TAB PO SCH (09:00)
[2020-05-04 11:19] LABS: Glucose,Whole Blood 117 mg/dL (75-99)
--- NOTE | 2020-05-04 11:42 | CT ---
EXAMINATION TYPE: CODE STROKE: CT brain wo contr DATE OF EXAM: 05/04/2020 COMPARISON: 05/03/2020 HISTORY: New stroke symptoms CT DLP: 1099.[address] of the brain was performed. The ventricles, basal cisterns and sulci overlying the cerebral convexities demonstrate mild enlargem ent. Large area of subacute infarct noted to involve the posterior right MCA territory is unchanged from p rior study. No evidence for hemorrhagic transformation. No midline shift. There is decreased attenuation about the periventricular white matter and deep white matter of both c erebral hemispheres, compatible with chronic small vessel ischemia. Differential diagnosis does inclu de demyelination. No midline shift. Osseous calvarium is intact. If symptoms persist consider MRI. IMPRESSION: 1. Large area of subacute infarct noted to involve the posterior right MCA territory is unchanged fro m prior study. No evidence for hemorrhagic transformation. No midline shift.
[2020-05-04 12:32] LABS: INR 1.1 (<1.2); Prothrombin Time 10.9 sec (9.0-12.0)
[2020-05-04 12:55] LABS: Glucose,Whole Blood 122 mg/dL (75-99)
[2020-05-04 12:58] LABS: African American GFR (CKD) >90 (>60 ml/min/1.73 sqM); Anion Gap 6 mmol/L; Blood Urea Nitrogen 16 mg/dL (9-20); Calcium 8.8 mg/dL (8.4-10.2); Carbon Dioxide 22 mmol/L (22-30); Chloride 106 mmol/L (98-107); Glucose 124 mg/dL (74-99); Non-African American GFR(CKD) >90 (>60 ml/min/1.73 sqM); Potassium 4.2 mmol/L (3.5-5.1); Sodium 134 mmol/L (137-145)
--- NOTE | 2020-05-04 13:44 | P.PN ---
Subjective Progress Note Date: 05/04/20 Principal diagnosis: Acute subacute evolving right middle cerebral artery infarct Subjective: Patient had a decline this morning neurologically. He is now reporting he cannot move his right arm very well as having great difficulty seeing. He also appears to be quite drowsy. He's able to still follow commands and answer appropriately but very drowsy. NIH stroke scale was difficult to obtain due to the patient's vision now diminished. Objective - Vital Signs Vital signs: Vital Signs Temp 98.2 F 05/04/20 04:00 Pulse 72 05/04/20 04:00 Resp 18 05/04/20 04:00 BP 192/88 05/04/20 06:30 Pulse Ox 95 05/04/20 04:00 Intake & Output 05/03/20 05/04/20 05/04/20 18:59 06:59 18:59 Intake Total 820 Output Total 100 400 Balance 720 -400 Weight 84.5 kg 87.5 kg Intake: IV 820 Sodium Chloride 0.9% 1, 720 000 ml @ 90 mls/hr IV . Q11H7M [facility] Rx#:[id number] Output: Urine 100 400 Other: Voiding Method Urinal Urinal Incontinent # Voids 1 1 - Exam A stat computed tomography scan of the head was obtained due to this acute change. There is been no evidence of any new infarcts however the infarct from admission does still appear quite large and I believe there is also extension into the right posterior cervical artery territory which could explain the increasing vision disturbance he is experiencing now. There is nothing overtly seen on CT to explain the now right sided hemiparesis of the upper and lower extremity. The case was discussed in depth with the family as well as the hospitalist that this patient has a very large territory infarct that appears now to be expanding into the right posterior sural artery territory. This patient could be a potential candidate for hemispherectomy and definitely remains to be at higher level care where there will been close neurological follow-up. Exam: Mental status: Patient drowsy difficult to arouse but once aroused does answer some questions appropriately. The patient's speech is mildly dysarthric. There is definite now right sided neglect. Pupils: 3 mm reactive to light and equal. Cranial nerves: Mild flattening still noted on the left face. Gag reflex is present. Patient is able to track no nystagmus noted. Motor examination: Dense hemiparesis is now noted on the right upper extremity. Patient still has significant weakness hemiplegia of the left arm but with great effort he can bring his left hand up to his nose. Patient is able to flex and extend both legs but now is unable to lift either leg off the bed. Deep tendon reflexes: Trace throughout. No ankle clonus elicited. Plantar responses are withdrawal bilaterally. Sensory examination patient does withdraw to stimulation in the upper and lower extremities. - Labs CBC & Chem 7: 05/04/20 06:15 05/04/20 11:42 Labs: Abnormal Lab Results - Last 24 Hours (Table) 05/04/20 05/04/20 05/04/20 Range/Units 06:15 11:09 11:42 Sodium 134 L 134 L (137-145) mmol/L Creatinine 0.51 L 0.53 L (0.66-1.25) mg/dL Glucose 133 H 124 H (74-99) mg/dL POC Glucose (mg/dL) 117 H (75-99) mg/dL Total Protein 6.1 L (6.3-8.2) g/dL Albumin 3.3 L (3.5-5.0) g/dL 05/04/20 Range/Units 12:52 Sodium (137-145) mmol/L Creatinine (0.66-1.25) mg/dL Glucose (74-99) mg/dL POC Glucose (mg/dL) 122 H (75-99) mg/dL Total Protein (6.3-8.2) g/dL Albumin (3.5-5.0) g/dL Assessment and Plan Assessment: This is 74-year-old gentleman who was brought in several days ago by his due to increasing weakness & a fall out of the bed early in the morning. His initial workup consisted of a negative computed tomography scan of the head, however he does have evidence of spondylitic changes in herniation in the neck. On hospital day (3) the patient had an acute clinical change on the day shift with difficulty getting out of the bathroom. We confirmed he had a large extensive right middle cerebral artery infarct. CT angiogram of the head and neck were performed and has ruled out any large vessel occlusion, aneurysm, dissection or high-grade stenosis. Due to the large extensive size of this infarct caution has been used in increasing antiplatelet therapy this we have only maintain him on 81 mg of aspirin without any evidence does far for hemorrhagic conversion. During the course of this hospitalization he underwent a transesophageal echocardiogram which was reported as normal however there is concern that he has been experiencing atrial flutter and cardiology is now recommending oral anticoagulation. On May 03 patient appeared to be doing better with family at bedside was interactive still though with mild dysarthria. He was able now that time to mobilize his left arm better. Our plan was to proceed as soon as possible for acute rehab, fleeting for placement. Continuing on aspirin until Thursday repeat computed tomography scan. If there was no further extension of the stroke the patient was can be transitioned over to oral anticoagulation due to suspected atrial flutter. This morning there was an acute change now the patient reporting he cannot see very well and also now significant weakness noted in the right upper extremity. Also his mental status finds him very drowsy. A stat computed tomography scan of the head was obtained due to this acute change. The radiological report reports no new findings or evidence of midline shift. I personally reviewed the CT and believe however that there may be involvement in the right posterior cerebral artery as well which could explain the significant vision disc loss. Due to this critical change this patient requires transfer to higher level of care. This was discussed with the family, the hospitalist to transfer to [facility] where this patient can be under close monitoring. This patient also may be a candidate for hemispherectomy. Dr. Joshi at [facility] except in the transfer. We have been in communication with each other by phone and he requested a stat CTA of the head and neck prior to discharge/transfer due to these new findings. At the time of this dictation we are still currently waiting for transfer. X Dr. Joshi also recommended to assure that his sodium levels are normalized. A stat BMP was obtained due to his sodium being mildly decreased at 134. Summary 1. Large right middle cerebral artery territory infarct ischemic with now sulcal effacement. No evidence of hemorrhagic conversion 2. Acute change in mental status this evening with NIH stroke scale increasing from 9-13 3. Normal EEG 4. Acute change this morning now involving the patient reporting he cannot see, and increasing weakness in the right upper extremity. 5. Normal transesophageal echo. Now suspect for atrial flutter. Cardiology recommending oral anticoagulation. Recommendations 1. Proceed with transfer to [facility] neuro ICU. 2. Stat CT angiogram of the head and neck./Per request [facility]. This is to be done prior to transfer 3. Stat BMP to reevaluate sodium level. 4. Maintain patient on O2 at 2 L/m. 5. Continue normal saline 90 mL/h for gentle hydration. 6. Avoid hypotension and hypertension. Maintain blood pressure parameters between diastolics 80-90 and systolic blood pressures between 130-140-. Maria Del Rosario Gómez M.D. Board Certified in Neurology and Sleep Medicine
--- NOTE | 2020-05-04 13:49 | P.DS ---
Providers Date of admission: 04/27/20 16:41 Expected date of discharge: 05/04/20 Attending physician: Stephanie Trevizo MD Consults: 04/28/20 08:25 Consult Physician Routine Consulting Provider: Rashel Berger Consult Reason/Comments: elevated Troponin Do you want consulting provider notified?: Yes 04/30/20 09:57 Consult Physician Routine Consulting Provider: Estuardo Ling Consult Reason/Comments: thrombocytopenia Do you want consulting provider notified?: Yes 05/01/20 08:48 Consult Physician Routine Consulting Provider: George Herrera Consult Reason/Comments: Debility Do you want consulting provider notified?: Yes 05/01/20 10:16 Consult Physician Routine Consulting Provider: Maria Del Rosario Gómez Consult Reason/Comments: Left sided weakness, altered mentation Do you want consulting provider notified?: Yes 05/01/20 20:23 Consult Physician Routine Consulting Provider: Marlo Hannon Consult Reason/Comments: bilateral stroke Do you want consulting provider notified?: Yes, Notify in am Primary care physician: Zane Means Hospital Course: Discharge Diagnosis: Acute to subacute CVA right temporal lobe with small acute CVA left thalamus Probable P. Atrial fluter Toxic metabolic Encephalopathy Fall Left 9th and 10th rib fractures HTN, with emergency this AM Thrombocytopenia, resolved Rhabdomyolysis, resolved Coronary artery disease Elevated troponin secondary to rhabdomyolysis and not reflective of acute coronary syndrome Transaminitis secondary to rhabdo Hospital Course: Patient is a 74-year-old male with hypertension, dyslipidemia, and known aortic aneurysm who presented to the emergency department after a fall at home area in the ER he underwent an extensive evaluation. Over the last 3-4 weeks his had noticed that he was getting weaker, having a "shuffling" gait, episodes of confusion and disorientation, and had noticed after his falls and possible slurring of words. In the ER he underwent extensive evaluation. On arrival his blood pressure is elevated at 173/89. Initial laboratory analysis showed a mild thrombocytopenia, CPK 2812, troponin 0.2 to, and urinalysis with protein, glucose, and ketones. He was diagnosed with rhabdomyolysis in the setting of fall and elevated troponin. He was admitted for further monitoring. He underwent a CT of the head and neck which showed mild generalized atrophy with chronic small vessel ischemic changes, moderate spondylitic changes C3/4 and C4/5 with disc herniation and moderate to mild narrowing of the spinal canal. Cardiology was consulted he was continued on IV fluids, and his CPKs were trended. His troponin remained flat and acute coronary syndrome was ruled out. He underwent an echocardiogram which showed a normal ejection fraction with no significant concerns. He was noted to have an elevated AST and ALT which were felt to be secondary to his rhabdo. He is on have some back pain over his stay which had improved. He was then complaining of some left rib cage pain. He underwent an x-ray which did demonstrate a left ninth and 10th hairline rib fracture. He was seen by oncology who felt that his thrombocytopenia was secondary to rhabdomyolysis and recommended followed CBCs. He was seen by PM and R who agreed with possible inpatient rehab. He underwent an MRI of the brain which showed a large acute or subacute ischemic infarct in the right posterior temporal lobe and the right MCA distribution along with a small acute infarct in the left thalamus. He underwent a CT of the head and neck which showed no hemodynamic significant stenosis of the internal carotids. He was seen by neurology who agreed with statin therapy and aspirin. His metoprolol and Norvasc were held to allow for permissive hypertension. Head CT was repeated on 05/02 which did show extensive hypodensity in the right frontoparietal junction in the right parietal lobe with sulcal effacement. Cardiology was re-consulted he had a SONAM which was unremarkable. He has slow continued improvement. On the morning of 05/04 he had been doing well and had gotten up with therapy. When I entered into the room about 20 minutes later he was lethargic, with slurred speech and wasn't moving his right arm. A Code stroke was called repeat head CT was read and unchanged. He was seen by our neurologist and the stroke robot neurologist who agreed that the patient needs transport to a neurosurgical center. [facility] has graciously agreed to accept this case. Repeat CTA of the head and neck showed some ICA stenosis but other lesion. Patient seen and examined at bedside. Lethargic but denies pain Vital signs reviewed and stable. General: ill appearing, mild distress, appears at stated age Derm: warm, dry Head: atraumatic, normocephalic, symmetric Eyes: EOMI, no lid lag, anicteric sclera Mouth: no lip lesion, mucus membranes moist Cardiovascular: S1S2 reg, no murmur, positive posterior tibial pulse bilateral, Lungs: CTA bilateral, no rhonchi, no rales , no accessory muscle use Abdominal: soft, nontender to palpation, no guarding, no appreciable organomegaly Ext: no gross muscle atrophy, no edema, no contractures Neuro: Garbled speech, mild left-sided facial droop, left upper extremity with muscle strength 4 out of 5 still with ataxic movements, not moving right upper extremity, unable to maintain right and left leg is lifted off bed. NIH stroke scale 23 Psych: Lethargic, A total of 35 minutes of time were spent preparing this complex discharge summary . Patient Condition at Discharge: Serious Plan - Discharge Summary Discharge Rx Participant: No New Discharge Prescriptions: No Action Aspirin 81 mg PO DAILY Discharge Medication List Aspirin 81 mg PO DAILY 12/01/17 [History] Follow up Appointment(s)/Referral(s): Zane Means MD [Primary Care Provider] - 1-2 days Guillermina Chavez MD [STAFF PHYSICIAN] - 1 Week
--- NOTE | 2020-05-04 14:22 | P.PN ---
Subjective Progress Note Date: 05/04/20 This is a 74-year-old gentleman with history of hypertension, hyperlipidemia, and known aortic aneurysm who presented to the emergency room initially after experiencing a fall at home, he underwent extensive evaluation. Patient apparently over the past 3-4 weeks was getting progressively weaker having intermittent episodes of confusion and disorientation. On presentation here was noted that his blood pressure was mildly elevated, his lab work showed mild thrombocytopenia, he had elevated CPKs and troponins, was diagnosed with rhabdomyolysis in the setting of an elevated troponin. He was admitted to be further monitored. Patient underwent an MRI of the brain which showed a large acute or subacute ischemic infarct in the right posterior temporal lobe and the right MCA distribution along with a small acute infarct in the left thalmus. He underwent a CT of the head and neck which showed no hemodynamic significant stenosis. Patient was seen by neurology. A head CT was repeated on the which did show extensive hypodensity in the right frontal parietal junction and parietal lobe with sulcal effacement. For this reason cardiology had been reconsulted and was requested to perform a SONAM which was done yesterday. It did not reveal any source of emboli. No evidence of a PFO or clot in the left atrial appendage. This morning, initially patient was showing some continued im provement, he got up with therapy earlier this morning. Approximately a half hour after therapy, it was noted that the patient was lethargic, slurring of speech, and was not moving his right arm. A code stroke was called and a repeat head CT was read as unchanged. He was seen by the neurologist and the stroke robot neurologist agreed that the patient needed transfer to a neurosurgical center. Because of the large right middle cerebral artery infarct, with new sulcal involvements, and acute change in the patient this morning, involving his vision and increased weakness in the right upper extremity, it is recommended that the patient be transferred per nephrology. Arrangements are being made for him to go to [facility]. Objective - Vital Signs Vital signs: Vital Signs Temp 98.2 F 05/04/20 04:00 Pulse 72 05/04/20 04:00 Resp 18 05/04/20 04:00 BP 192/88 05/04/20 06:30 Pulse Ox 95 05/04/20 04:00 Intake & Output 05/03/20 05/04/20 05/04/20 18:59 06:59 18:59 Intake Total 820 Output Total 100 400 Balance 720 -400 Weight 84.5 kg 87.5 kg Intake: IV 820 Sodium Chloride 0.9% 1, 720 000 ml @ 90 mls/hr IV . Q11H7M [facility] Rx#:[id number] Output: Urine 100 400 Other: Voiding Method Urinal Urinal Incontinent # Voids 1 1 - Exam Vital signs reviewed and stable. General: ill appearing, mild distress, appears at stated age Derm: warm, dry Head: atraumatic, normocephalic, symmetric Eyes: EOMI, no lid lag, anicteric sclera Mouth: no lip lesion, mucus membranes moist Cardiovascular: S1S2 reg, no murmur, positive posterior tibial pulse bilateral, Lungs: CTA bilateral, no rhonchi, no rales , no accessory muscle use Abdominal: soft, nontender to palpation, no guarding, no appreciable organomegaly Ext: no gross muscle atrophy, no edema, no contractures Neuro: Garbled speech, mild left-sided facial droop, left upper extremity with muscle strength 4 out of 5 still with ataxic movements, not moving right upper extremity, unable to maintain right and left leg is lifted off bed. NIH stroke scale 23 Psych: Lethargic, - Labs CBC & Chem 7: 05/04/20 06:15 05/04/20 11:42 Labs: Abnormal Lab Results - Last 24 Hours (Table) 05/04/20 05/04/20 05/04/20 Range/Units 06:15 11:09 11:42 Sodium 134 L 134 L (137-145) mmol/L Creatinine 0.51 L 0.53 L (0.66-1.25) mg/dL Glucose 133 H 124 H (74-99) mg/dL POC Glucose (mg/dL) 117 H (75-99) mg/dL Total Protein 6.1 L (6.3-8.2) g/dL Albumin 3.3 L (3.5-5.0) g/dL 05/04/20 Range/Units 12:52 Sodium (137-145) mmol/L Creatinine (0.66-1.25) mg/dL Glucose (74-99) mg/dL POC Glucose (mg/dL) 122 H (75-99) mg/dL Total Protein (6.3-8.2) g/dL Albumin (3.5-5.0) g/dL Assessment and Plan Plan: Assessment and plan #1 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 We will follow this patient along with you now on an as-needed basis only, least on hesitate to call if you have any questions. DNP note has been reviewed, I agree with a documented findings and plan of care. Patient was seen and examined.
--- NOTE | 2020-05-04 14:35 | CT ---
EXAMINATION TYPE: CT angio head neck DATE OF EXAM: 05/04/2020 COMPARISON: None HISTORY: Rhabdo, weakness, elevated troponins CT DLP: 489.1 mGycm CONTRAST: Performed with IV Contrast, patient injected with 65 mL of Isovue 370. Combination Contrast CTA cervical carotids and [place] CTA cervical carotids with 3-D recons truction Contrast CTA of the cervical carotids was performed 3-D reconstruction imaging obtained at a separate workstation. Right carotid system: Mild plaque is seen of the right common carotid artery. There is mild plaque a lso noted at the carotid bulb and proximal ICA. No significant diameter reduction. ECA is patent. Right vertebral artery appears unremarkable. Left carotid system: Mild plaque is seen of the left common carotid artery. There is moderate focal plaque also noted at the proximal ICA. Stenosis is estimated at 70%. No significant diameter reduc tion. ECA is patent. Left vertebral artery appears unremarkable. IMPRESSION: 1. There is moderate focal plaque also noted at the proximal ICA. Stenosis is estimated at 70%. CTA [place] with 3-D reconstruction Contrast CTA of the [place] was performed 3-D reconstruction imaging obtained at a separate workstation. Vertebrobasilar system as well as intracranial portions of the internal carotid arteries and their [place] tributaries are patent. I do not see evidence for sizable aneurysm or vascular malformation. Pl ease note MRI provides greater sensitivity and specificity. Visualized brain appears grossly unremar kable. IMPRESSION: 1. No significant abnormality.
[2020-05-04] MEDS: ATORVASTATIN 40 MG TAB PO SCH (20:44)
[2020-05-04 21:37] VITALS: BP 171/86; PULSE 69; RESP 13; TEMP 98.6
== END 2020-05-04 21:46 | disposition short-term general hospital (02) | DRG 564 ==
LOC: EC 13:11 → 3SCARD 16:41 → 2SICU 05-04 12:42
PROVIDERS: ADMIT Internal Medicine; ATTEND Internal Medicine
DX: T79.6XXA Traumatic ischemia of muscle, initial encounter (principal); G92 Toxic encephalopathy; I63.511 Cerebral infarction due to unspecified occlusion or stenosis of right middle cerebral artery; S22.42XA Multiple fractures of ribs, left side, initial encounter for closed fracture; I48.4 Atypical atrial flutter; G81.94 Hemiplegia, unspecified affecting left nondominant side; I16.1 Hypertensive emergency; E78.5 Hyperlipidemia, unspecified; I10 Essential (primary) hypertension; G47.33 Obstructive sleep apnea (adult) (pediatric); I25.10 Atherosclerotic heart disease of native coronary artery without angina pectoris; G89.29 Other chronic pain; F17.210 Nicotine dependence, cigarettes, uncomplicated; D69.6 Thrombocytopenia, unspecified; M19.90 Unspecified osteoarthritis, unspecified site; I45.10 Unspecified right bundle-branch block; M48.02 Spinal stenosis, cervical region; M50.21 Other cervical disc displacement, high cervical region; M50.221 Other cervical disc displacement at C4-C5 level; R29.709 NIHSS score 9; I71.9 Aortic aneurysm of unspecified site, without rupture; W06.XXXA Fall from bed, initial encounter; Y92.009 Unspecified place in unspecified non-institutional (private) residence as the place of occurrence of the external cause; Z11.59 Encounter for screening for other viral diseases; I25.2 Old myocardial infarction; Z79.82 Long term (current) use of aspirin; Z95.5 Presence of coronary angioplasty implant and graft; Z83.3 Family history of diabetes mellitus; Z82.49 Family history of ischemic heart disease and other diseases of the circulatory system; Z86.73 Personal history of transient ischemic attack (TIA), and cerebral infarction without residual deficits; Z80.9 Family history of malignant neoplasm, unspecified
CPT/HCPCS: 36415; 70450; 70496; 70498; 70551; 71046; 72125; 80048; 80053; 80061; 81001; 82550; 82553; 82607; 82746; 83519; 83605; 83615; 83735; 83880; 84100; 84439; 84443; 84480; 84484; 85025; 85027; 85610; 85730; 93005; 93306; 93312; 93320; 93325; 93970; 95819; 96361; 96374; 96375; 99285